=== PATIENT | female | born 1945 | race Caucasian/White ===

== ENCOUNTER → 2017-01-21 | Outpatient (CLI) | payer MEDICARE, OTHER ==
[2017-01-21 14:34] LABS: CH 28.9; CHCM 32.6; HCT 35.1 % (34.0-46.0); HDW 3.01; HGB 11.7 gm/dL (11.4-16.0); MCH 29.7 pg (25.0-35.0); MCHC 33.3 g/dL (31.0-37.0); Mean Platelet Volume 6.7; RBC 3.94 m/uL (3.80-5.40); RDW 14.7 % (11.5-15.5); WBC 4.5 k/uL (3.8-10.6)
[2017-01-21 14:38] LABS: Anion Gap 10 mmol/L; Blood Urea Nitrogen 18 mg/dL (7-17); Carbon Dioxide 27 mmol/L (22-30); Chloride 100 mmol/L (98-107); Non-African American GFR(MDRD) >60 (>60 ml/min/1.73 sqM); Sodium 137 mmol/L (137-145)
== END | disposition home or self-care (01) ==
LOC: LABPAT 14:05
PROVIDERS: ATTEND Internal Medicine Interventional Cardiology
DX: Z01.812 Encounter for preprocedural laboratory examination (principal); R94.30 Abnormal result of cardiovascular function study, unspecified
CPT/HCPCS: 80051; 82565; 84520; 85027

== ENCOUNTER → 2017-02-05 | Day surgery (SDC) | payer MEDICARE, OTHER ==
[2017-02-04 08:30] VITALS: BMI 25.4
[~2017-02-05] MED LIST: ALPRAZolam 0.25 MG TAB PO PRN; ALPRAZolam 0.5 MG TAB PO PRN; ASPIRIN 325 MG TAB PO STA; ATORVASTATIN 80 MG TAB PO STA; IOHEXOL 350 MG/ML 125ML BOTTLE INJ ONE; LIDOCAINE 2% INJ 20 MG/ML (20 ML MDV) ONE; LIDOCAINE 2% INJ 20 MG/ML SQ ONE; MIDAZOLAM 2 MG/2 ML VIAL IV ONE; MIDAZOLAM 2 MG/2 ML VIAL ONE; NITROGLYCERIN SL TABS 0.4 MG TAB SUBLINGUAL ONE; NITROGLYCERIN SL TABS 0.4 MG TAB SUBLINGUAL PRN; SODIUM CHLORIDE 0.9% 1,000 ML IV ONE; SODIUM CHLORIDE 0.9% 1,000 ML IV SCH; SODIUM CHLORIDE 0.9% 1,000 ML in EMPTY BAG 1 BAG IV ONE; diphenhydrAMINE 50 MG/ML 1 ML VIAL IVP ONE; diphenhydrAMINE 50 MG/ML 1 ML VIAL ONE
[2017-02-05 06:56] VITALS: RESP 16; TEMP 98.1
--- NOTE | 2017-02-05 08:56 | CC ---
DATE OF SERVICE: 02/05/2017 PROCEDURE: Left heart catheterization, coronary angiography and left ventriculography. Performed by Dr. Sara Merrill. Moderate conscious sedation was provided for this patient for a total duration of 40 minutes. Versed, and Benadryl were given and oxygenation was monitored closely. PROCEDURE NOTE: Under local anesthesia and strict aseptic precautions, a 6 Mozambican introducer was placed in the right femoral artery. Using standard Aida catheters, I performed coronary angiography. Patient tolerated the procedure well. The sheath was taken out, manual compression was used because of small common femoral arteries. Patient was sent to the room in stable condition. She tolerated the procedure well without complications. CARDIAC CATHETERIZATION FINDINGS: The left ventricle end-diastolic pressure was about 22 mmHg and there was no gradient across the aortic valve. CORONARY ANGIOGRAPHY FINDINGS: RIGHT CORONARY ARTERY: Small nondominant vessel, supplies a limited amount of myocardium. There is no significant disease in the right coronary artery. LEFT MAIN CORONARY ARTERY: Short, patent, disease-free vessel that bifurcates into LAD and circumflex. LEFT ANTERIOR DESCENDING CORONARY ARTERY: Good caliber vessel extends along the anterior wall, gives septal and diagonal branches. The first diagonal is large caliber distribution, has no significant disease. Septals are free of significant disease. LAD, runs all the way to the apex supplying a sizable amount of myocardium. ( ) of the apex supply the inferoapical portion of the left ventricle. The entire LAD system is free of significant disease. LEFT POSTERIOR CIRCUMFLEX CORONARY ARTERY: Dominant vessel gives off a large obtuse marginal free of significant disease. Second obtuse marginal has minor diffuse disease distal posterolateral branch is free of significant disease. LEFT VENTRICULOGRAM: This was performed in 30 degree DENNIS projection. There was some ventricular tachycardia. Ejection fraction is about 45% with mild global decrease in contractility. FINAL IMPRESSION: This patient has a left dominant system, elevated filling pressures, mildly impaired left ventricular systolic function, but no significant obstructive coronary artery disease. RECOMMENDATION: Findings were discussed with the patient and family. Patient should be able to go ahead with her proposed elective hysterectomy. There is no contraindication. I will; however, add a small dose of diuretic. She is already on an ARB and a beta pita. I allowed 20 mg of Lasix to be started tomorrow. Patient can go ahead with the proposed hysterectomy. There is no contraindication but would recommend cautious fluid administration and optimal blood pressure control perioperatively.
--- NOTE | 2017-02-05 09:01 | LTR ---
February 05, 2017 RE: CorbinHernandez Dear Dr. Vazquez; Thank you for the opportunity to participate in the care of Ms. Alaniz. I am pleased to report to you that she does not have any significant progression of disease. Filling pressure is elevated. I am adding 20 mg of Lasix daily. She will be discharged later on today and can go ahead with the surgery with the understanding that the risk is higher than usual given her comorbid conditions, but no absolute contraindication. Cautious fluid administration and optimal blood pressure control is advised. Thank you for your referral and please call for questions. With kindest regards. Sincerely yours, SARAH BAIRES MD
[2017-02-05 16:24] VITALS: PULSE 90
[2017-02-05 17:06] VITALS: BP 125/59
== END ==
LOC: CATHCVL 06:21
PROVIDERS: ATTEND Internal Medicine Interventional Cardiology
DX: I25.110 Atherosclerotic heart disease of native coronary artery with unstable angina pectoris (principal); E78.00 Pure hypercholesterolemia, unspecified; E78.5 Hyperlipidemia, unspecified; E03.9 Hypothyroidism, unspecified; I42.0 Dilated cardiomyopathy; R94.39 Abnormal result of other cardiovascular function study; I10 Essential (primary) hypertension; Z85.72 Personal history of non-Hodgkin lymphomas; Z92.21 Personal history of antineoplastic chemotherapy; Z85.118 Personal history of other malignant neoplasm of bronchus and lung; Z79.51 Long term (current) use of inhaled steroids; Z79.899 Other long term (current) drug therapy; Z88.1 Allergy status to other antibiotic agents; Z88.2 Allergy status to sulfonamides; Z87.891 Personal history of nicotine dependence
CPT/HCPCS: 93458; 99152; 99153; C1894; C1769 ×2; J2001; J2250; J1200; Q9967

== ENCOUNTER → 2017-03-02 | Outpatient (CLI) | payer MEDICARE, OTHER ==
[2017-03-02 12:03] LABS: Basophils % (A) 1 %; CH 28.1; CHCM 32.8; Eosinophils # (A) 0.1 k/uL (0-0.7); Eosinophils % (A) 2 %; HCT 31.1 % (34.0-46.0); HGB 10.2 gm/dL (11.4-16.0); Luc # (Auto) 0.24; Luc % (Auto) 4; Lymphocytes # (A) 0.8 k/uL (1.0-4.8); Lymphocytes % (A) 14 %; MCH 28.2 pg (25.0-35.0); MCHC 32.8 g/dL (31.0-37.0); Mean Platelet Volume 6.8; Monocytes # (A) 0.4 k/uL (0-1.0); Monocytes % (A) 7 %; Neutrophils % (A) 72 %; RBC 3.62 m/uL (3.80-5.40); RDW 14.4 % (11.5-15.5); WBC 5.6 k/uL (3.8-10.6); WBC (Perox) 5.83
[2017-03-02 12:21] LABS: Anion Gap 12 mmol/L; Blood Urea Nitrogen 25 mg/dL (7-17); Calcium 9.3 mg/dL (8.4-10.2); Carbon Dioxide 28 mmol/L (22-30); Chloride 98 mmol/L (98-107); Glucose 103 mg/dL (74-99); Non-African American GFR(MDRD) 56 (>60 ml/min/1.73 sqM); Potassium 4.6 mmol/L (3.5-5.1); Sodium 138 mmol/L (137-145)
== END ==
LOC: LABPAT 11:22
PROVIDERS: ATTEND Obstetrics & Gynecology
DX: Z01.810 Encounter for preprocedural cardiovascular examination (principal); Z01.812 Encounter for preprocedural laboratory examination
CPT/HCPCS: 36415; 80048; 80061; 85025; 86850; 86900; 86901

== ENCOUNTER → 2017-03-02 | Outpatient (CLI) | payer MEDICARE, OTHER ==
[2017-03-02 12:21] LABS: Cholesterol 181 mg/dL (<200); HDL Cholesterol 37 mg/dL (40-60); Triglycerides 146 mg/dL (<150)
== END ==
LOC: LABWHC1 11:22
PROVIDERS: ATTEND Internal Medicine Interventional Cardiology
DX: E78.2 Mixed hyperlipidemia (principal)
CPT/HCPCS: 36415; 80061

== ENCOUNTER 2017-03-09 06:01 | Day surgery (SDC) | payer MEDICARE, OTHER ==
[2017-03-04 11:42] VITALS: BMI 25.4
[~2017-03-09 06:01] MED LIST changes: -ALPRAZolam 0.25 MG TAB PO PRN; -ALPRAZolam 0.5 MG TAB PO PRN; -ASPIRIN 325 MG TAB PO STA; -ATORVASTATIN 80 MG TAB PO STA; +DEXAMETHASONE SOD PHOSPHATE 10 MG/ML 1 ML VIAL IV ONE; +GENTAMICIN 120 MG in SODIUM CHLORIDE 0.9% 100 ML IVPB ONE; -IOHEXOL 350 MG/ML 125ML BOTTLE INJ ONE; -LIDOCAINE 2% INJ 20 MG/ML (20 ML MDV) ONE; -LIDOCAINE 2% INJ 20 MG/ML SQ ONE; -MIDAZOLAM 2 MG/2 ML VIAL IV ONE; -MIDAZOLAM 2 MG/2 ML VIAL ONE; -NITROGLYCERIN SL TABS 0.4 MG TAB SUBLINGUAL ONE; -NITROGLYCERIN SL TABS 0.4 MG TAB SUBLINGUAL PRN; +ONDANSETRON 4 MG/2 ML VIAL IVP ONE; -SODIUM CHLORIDE 0.9% 1,000 ML IV ONE; -SODIUM CHLORIDE 0.9% 1,000 ML IV SCH; -SODIUM CHLORIDE 0.9% 1,000 ML in EMPTY BAG 1 BAG IV ONE; +ceFAZolin 2 GM in SODIUM CHLORIDE 0.9% 100 ML IVPB ONE; -diphenhydrAMINE 50 MG/ML 1 ML VIAL IVP ONE; -diphenhydrAMINE 50 MG/ML 1 ML VIAL ONE
--- NOTE | 2017-03-09 06:21 | P.HPOB ---
History of Present Illness H&P Date: 03/09/17 Chief Complaint: prolapse 71 year old presents for TLH BSO with da vinici, anterior repair and then sub urethral sling placement by Dr Lee. Review of Systems All systems: negative Constitutional: Denies chills, Denies fever Eyes: denies blurred vision, denies pain Ears, nose, mouth and throat: Denies headache, Denies sore throat Cardiovascular: Denies chest pain, Denies shortness of breath Respiratory: Denies cough Gastrointestinal: Denies abdominal pain, Denies diarrhea, Denies nausea, Denies vomiting Genitourinary: Denies dysuria, Denies hematuria Musculoskeletal: Denies myalgias Integumentary: Denies pruritus, Denies rash Neurological: Denies numbness, Denies weakness Psychiatric: Denies anxiety, Denies depression Endocrine: Denies fatigue, Denies weight change Past Medical History Past Medical History: Cancer, Deep Vein Thrombosis (DVT), Osteoarthritis (OA), Thyroid Disorder Additional Past Medical History / Comment(s): lung cancer, LYMPHOMA-NON HODGKINS , " LOWER CHAMBER OF HEART WAS DAMAGED DURING CHEMO" DVT- LEFT LEG History of Any Multi-Drug Resistant Organisms: None Reported Past Surgical History: Appendectomy, Cholecystectomy, Tubal Ligation Additional Past Surgical History / Comment(s): lung Ca, lymphoma, stem cell transplantsurgical hx: right lung lobectomy Past Anesthesia/Blood Transfusion Reactions: No Reported Reaction Smoking Status: Former smoker Past Alcohol Use History: None Reported Past Drug Use History: None Reported - Past Family History Father Family Medical History: Cancer Additional Family Medical History / Comment(s): PROSTATE CANCER Mother Family Medical History: Cancer Sister(s) Family Medical History: Cancer Additional Family Medical History / Comment(s): SKIN CANCER Brother(s) Family Medical History: Cancer Additional Family Medical History / Comment(s): lung Medications and Allergies Home Medications Medication Instructions Recorded Confirmed Type Carvedilol [Coreg] 6.25 mg PO QAM 01/06/15 03/09/17 History Levothyroxine Sodium [Synthroid] 100 mcg PO DAILY 01/06/15 03/09/17 History Montelukast [Singulair] 10 mg PO HS 01/06/15 03/09/17 History Arformoterol Tartrate [Brovana] 15 mcg INHALATION RT-BID 08/13/16 03/09/17 History Baclofen [Lioresal] 20 mg PO HS 08/13/16 03/09/17 History Budesonide [Pulmicort] 1 mg INHALATION RT-BID 08/13/16 03/09/17 History Calcium Carbonate [Calcium] 600 mg PO BID 08/13/16 03/09/17 History Carvedilol [Coreg] 3.125 mg PO HS 08/13/16 03/09/17 History Esomeprazole Magnesium [NexIUM] 40 mg PO DAILY 08/13/16 03/09/17 History Losartan [Cozaar] 25 mg PO HS 08/13/16 03/09/17 History Aspirin [Adult Low Dose Aspirin EC] 81 mg PO DAILY 02/04/17 03/09/17 History Diclofenac Sodium [Voltaren] 50 mg PO BID 03/04/17 03/09/17 History Furosemide [Lasix] 20 mg PO DAILY 03/04/17 03/09/17 History Allergies Allergy/AdvReac Type Severity Reaction Status Date / Time levofloxacin [From Levaquin] Allergy Rash/Hives Verified 03/09/17 06:10 Sulfa (Sulfonamide Allergy Rash/Hives Verified 03/09/17 06:10 Antibiotics) Exam Osteopathic Statement: *. No significant issues noted on an osteopathic structural exam other than those noted in the History and Physical/Consult. Heart: Regular rate and rhythm Lungs: Clear to auscultation bilaterally Abdomen: Soft, nontender Extremities: Negative Homans sign Assessment and Plan (1) Cystocele Status: Acute (2) Overflow stress urinary incontinence in female Status: Acute Plan: 1. Total laparoscopic hysterectomy and bilateral salpingo-oophorectomy with da Frank, anterior repair and then a suburethral sling placed by Dr. Lee
[2017-03-09] MEDS: LACTATED RINGERS 1,000 ML IV SCH ×5 (06:37→22:07)
[2017-03-09] MEDS ORDERED: SUCCINYLCHOLINE CHLORIDE 100 MG/5 ML SYR IV ONE (07:15)
[2017-03-09] MEDS ORDERED: VECURONIUM 10 MG VIAL IV ONE (07:15)
[2017-03-09] MEDS ORDERED: PROPOFOL 10 MG/ML 20 ML VIAL IV ONE (07:15)
[2017-03-09] MEDS ORDERED: NEOSTIGMINE 1 MG/ML 10 ML VIAL ONE (07:15)
[2017-03-09] MEDS ORDERED: fentaNYL (PF) 50 MCG/ML 2 ML AMP ONE (07:15)
[2017-03-09] MEDS ORDERED: MIDAZOLAM 2 MG/2 ML VIAL ONE (07:15)
[2017-03-09] MEDS ORDERED: GLYCOPYRROLATE 0.2 MG/ML 2 ML VIAL ONE (07:15)
[2017-03-09] MEDS ORDERED: PHENYLEPHRINE-0.9% NACL SYG 1 MG/10 ML SYRINGE ONE (07:15)
[2017-03-09] MEDS ORDERED: LIDOCAINE 1% INJ 10MG/ML (20 ML MDV) ONE (07:15)
[2017-03-09] MEDS ORDERED: BUPIVACAINE (PF) 0.25% 30 ML VIAL SQ ONE (07:48)
[2017-03-09] MEDS ORDERED: LACTATED RINGERS 1,000 ML IV ONE (09:16)
[2017-03-09] MEDS: HYDROmorphone 1 MG/ML 1 ML SYRINGE IVP PRN ×2 (09:29→09:38)
[2017-03-09] MEDS ORDERED: ONDANSETRON 4 MG/2 ML VIAL IVP ONE (09:33)
--- NOTE | 2017-03-09 09:39 | P.OP ---
Date of Procedure: 03/09/17 Preoperative Diagnosis: Mixed Urinary Incontinence Postoperative Diagnosis: Same Procedure(s) Performed: Lynx Suprapubic Mid-Urethral Sling Implants: Anesthesia: GETA Surgeon: Edward Lee Hotel Attendant #1: Caryn Deluca Estimated Blood Loss (ml): 250 Pathology: none sent Condition: stable Disposition: PACU Indications for Procedure: She is a 71-year-old woman with mild mixed urinary incontinence, which requires the use of one liner daily. She previously required 3-4 maxi pads daily. She has a cystocele, and has recently experienced difficulty voiding. 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 Bladder emptying is complete, and urinalysis is negative. She desires treatment, which will consist of a RALH, anterior repair, and Lynx sling. UDS is consistent with type 2-3 stress incontinence, with a Valsalva leak point pressure of approximately 70 cm water. The sling was reviewed in detail, including potential risks, and she prefers the Lynx sling over a TOT sling due to the decreased likelihood of postoperative incontinence. Operative Findings: Bladder adherent to underside of pubis. Left needle perforated bladder on first pass. Description of Procedure: I entered the operating room after Dr. Deluca completed the hysterectomy and anterior repair. The patient was positioned in the dorsal lithotomy position, with her legs supported in Derian stirrups. The urethra was exposed through an anterior vaginal midline incision. Metzenbaum scissors were used to dissect laterally within the submucosal plane, to the inferior pubic ramus. The scalpel was used to make bilateral incisions just above the pubis, 1 cm lateral to the midline. Subcutaneous tissues were spread with a hemostat. A needle was passed through each of the incisions. Contact was made with the underside of the pubis, and the needle tip was advanced down to the vaginal incision. With a finger in the vaginal incision, each needle tip was guided digitally and advanced into the vaginal incision. Cystoscopy was then performed, and it was evident that the left sided needle had traversed the bladder. Both needles were removed, and the endopelvic fascia was perforated bilaterally using digital dissection. The bladder was swept away from the underside of the pubis , and the needles were replaced. With a finger in the space of Retzius, the needles were guided digitally and advanced into the vaginal incision. Cystoscopy was repeated, and no abnormalities were noted. Specifically, the ureteral orifices appeared normal, and no tumors or foreign bodies were seen. Neither needle traversed the bladder. A small puncture wound was noted on the anterior vaginal wall, to the left of the midline, and slight oozing was also noted from the anterior aspect of the vesical neck. The Lynx graft, which had been previously soaked in antibiotic solution, was secured to the needle tips in the standard fashion. The needles were then withdrawn, and the position of the graft was adjusted such that it overlie the mid urethra, as desired. With a hemostat placed between the graft and the urethra to prevent tension of the graft over the urethra, the plastic sheath was removed from the ends of the graft. The ends of the graft were cut beneath the skin incisions, and these incisions were closed using 4-0 Vicryl suture in a subcuticular fashion. Hemostasis within the vaginal incision was adequate, and the vaginal incision was closed by Dr. Deluca using 2-0 Vicryl suture in a running fashion. The Stein catheter was connected to gravity drainage. Vaginal packing was placed. All sponge and needle counts were correct. The patient tolerated the procedure well was taken to the recovery room in stable condition.
[2017-03-09] MEDS ORDERED: METOCLOPRAMIDE 5 MG/ML 2 ML VIAL IVP PRN (11:38)
[2017-03-09] MEDS ORDERED: Acetaminophen-Codeine 300-30mg TAB PO PRN ×2 (11:38)
[2017-03-09] MEDS ORDERED: IBUPROFEN 600 MG TAB PO PRN (11:38)
[2017-03-09] MEDS ORDERED: SIMETHICONE 80 MG CHEWABLE PO PRN (11:38)
[2017-03-09] MEDS ORDERED: ONDANSETRON 4 MG/2 ML VIAL IVP PRN (11:38)
[2017-03-09] MEDS ORDERED: diphenhydrAMINE 50 MG/ML 1 ML VIAL IVP PRN (11:38)
[2017-03-09] MEDS: KETOROLAC 30 MG/ML 1 ML VIAL IVP PRN ×2 (12:31→18:24)
--- NOTE | 2017-03-09 12:46 | P.OP ---
Date of Procedure: 03/09/17 Preoperative Diagnosis: 1. Cystocele 2. Stress urinary incontinence Postoperative Diagnosis: 1. Cystocele 2. Stress urinary incontinence 3. Pelvic adhesions Procedure(s) Performed: Total laparoscopic hysterectomy, bilateral salpingo-oophorectomy using da Frank , anterior repair and suburethral sling placed by Dr. Lee Implants: Anesthesia: MARTHA Surgeon: Caryn Deluca Vacuum Caster #1: Crys Núñez Estimated Blood Loss (ml): 80 IV fluids (ml): 1,100 Urine output (ml): 100 Pathology: other (Uterus, cervix, bilateral tubes and ovaries) Condition: stable Disposition: PACU Indications for Procedure: Operative Findings: Some bowel adhesions to the posterior wall of the uterus, some bladder adhesions to the fundus of the uterus. Description of Procedure: Patient taken the operating room where general anesthesia was obtained without difficulty. She is prepped and draped in normal sterile fashion dorsal lithotomy position, legs placed in the Derian stirrups. Weighted speculum placed in the vagina and the anterior lip the cervix was grasped with single- tooth tenaculum. The uterus sounded to 6 cm and the cervix diameter was 3.0 cm. The appropriate manipulator tip and ring were placed on the Elisa manipulator. The Elisa manipulator was then placed in the uterus. Stein catheter was also placed. Attention was then turned to the abdomen and gloves were changed. A 5 mm supraumbilical incision was made the scalpel and a 5 mm optical trocar was placed under direct visualization. 10 cm to the right of this and 2 cm down a 5 mm incision was made and 8 mm da Frank port was placed under direct visualization. Same measurements on the opposite side of the patient's abdomen, the 5 mm incision was made and 8 mm da Frank port was placed under direct visualization. In the left upper quadrant a 10 mm incision was made and a 10 mm optical trocar was placed under direct visualization. The 5 mm optical trocar was then replaced with the 8 mm da Frank camera port. The robot was docked on patient's right side. The camera was introduced and then the monopolar curved scissor and [place] bipolar placed under direct visualization. I broke scrub and went to the physician console. The adhesion to the bowel was taken down using the [place] bipolar and the monopolar curved scissors. The filmy adhesion to the bladder was also taken down using the monopolar curved scissors. The left infundibulopelvic ligament was cauterized with the [place] bipolar and cut with monopolar curved scissors. The left round ligament was cauterized with the [place] bipolar and cut with monopolar curved scissors. The posterior leaf of the broad ligament was taken down using the monopolar curved scissors. Anterior leaf of the broad ligament was then taken down using the monopolar curved scissors. The uterine artery was cauterized with the [place] bipolar and cut with monopolar curved scissors. The bladder flap was then started using the monopolar curved scissors. Attention was then turned to the right side of the patient's anatomy and the right infundibular pelvic ligament was cauterized with the [place] bipolar and cut with monopolar curved scissors. The right round ligament was cauterized with the [place] bipolar and cut with monopolar curved scissors. Posterior leaf of the broad ligament was taken down using the monopolar curved scissors and the anterior leaf was taken down using the monopolar curved scissors. The uterine artery was cauterized the [place] bipolar cut with monopolar curved scissors. The bladder flap was then finished on this side. Anterior colpotomy was made using the monopolar curved scissors. The rest of the uterus was from the vaginal cuff by following the ring around with the monopolar curved scissors through the uterosacral ligaments back to the anterior portion. Once the uterus and cervix were amputated they were pulled through the vaginal cuff. Hemostasis was assured. The instruments were changed for the Cardier forcep and the hue suture cut. The vaginal cuff was then closed using O stratafix barbed suture in a running fashion. Hemostasis was again assured and the pelvis was irrigated. All instruments were removed from the abdomen and the robot was undocked. The abdominal incisions were closed with 4-0 Vicryl in a subcuticular fashion. I scrubbed back in to perform the vaginal portion of the procedure. The anterior vaginal mucosa was grasped with Allis clamps and vasopressin was injected. An incision was made the scalpel. The incision was extended superiorly with the Metzenbaums. The vaginal mucosa was peeled off the underlying fascia and a blunt manner. A Madhavi plication stitch was placed. Dr. Lee then scrubbed in and performed his portion of the procedure, please see his dictation for details on this. Patient tolerated the procedure well, sponge and instrument counts correct 2 and she was taken to recovery room in stable condition condition
[2017-03-09] MEDS: ceFAZolin 1,000 MG in DEXTROSE/WATER 1 50ML.BAG IVPB SCH (16:32)
[2017-03-09] MEDS ORDERED: GENTAMICIN 80 MG in SODIUM CHLORIDE 0.9% 100 ML IVPB ONE (19:00)
[2017-03-09] MEDS ORDERED: FORMOTEROL FUMARATE 20 MCG/2 ML NEBU INHALATION SCH (20:00)
[2017-03-09] MEDS: CALCIUM CARBONATE 500 MG CHEWABLE PO SCH (20:37)
[2017-03-09] MEDS: ETODOLAC 200 MG CAPSULE PO SCH (20:38)
[2017-03-09] MEDS: SENNOSIDES-DOCUSATE SODIUM 1 EACH TAB PO SCH (20:39)
[2017-03-09] MEDS ORDERED: MONTELUKAST 10 MG TAB PO SCH (21:00)
[2017-03-09] MEDS ORDERED: LOSARTAN 25 MG TAB PO SCH (21:00)
[2017-03-09] MEDS ORDERED: CARVEDILOL 3.125 MG TAB PO SCH (21:00)
[2017-03-09] MEDS ORDERED: BACLOFEN 10 MG TAB PO SCH (21:00)
[2017-03-09] MEDS: BUDESONIDE 1 MG/2 ML NEBU INHALATION SCH (21:01)
[2017-03-09] MEDS: FORMOTEROL FUMARATE 20 MCG/2 ML NEBU INHALATION SCH (21:01)
[2017-03-10] MEDS: KETOROLAC 30 MG/ML 1 ML VIAL IVP PRN ×2 (00:24→06:09)
[2017-03-10] MEDS: ceFAZolin 1,000 MG in DEXTROSE/WATER 1 50ML.BAG IVPB SCH ×2 (00:25→07:39)
[2017-03-10 03:36] VITALS: RESP 18
[2017-03-10] MEDS: LACTATED RINGERS 1,000 ML IV SCH (06:11)
[2017-03-10] MEDS ORDERED: LEVOTHYROXINE 100 MCG TAB PO SCH (06:30)
[2017-03-10 07:07] LABS: Basophils % (A) 0 %; CH 27.5; CHCM 31.8; Eosinophils % (A) 1 %; HDW 3.14; Hypochromasia Slight; Luc # (Auto) 0.16; Luc % (Auto) 4; Lymphocytes # (A) 0.6 k/uL (1.0-4.8); Lymphocytes % (A) 15 %; MCH 27.7 pg (25.0-35.0); MCHC 31.8 g/dL (31.0-37.0); MCV 86.9 fL (80.0-100.0); Mean Platelet Volume 6.7; Monocytes # (A) 0.3 k/uL (0-1.0); Monocytes % (A) 8 %; Neutrophils # (A) 2.7 k/uL (1.3-7.7); Neutrophils % (A) 72 %; RBC 2.76 m/uL (3.80-5.40); RDW 14.6 % (11.5-15.5); WBC 3.8 k/uL (3.8-10.6); WBC (Perox) 4.15
[2017-03-10 07:11] LABS: HGB 7.6 gm/dL (11.4-16.0)
[2017-03-10] MEDS: FORMOTEROL FUMARATE 20 MCG/2 ML NEBU INHALATION SCH (07:17)
[2017-03-10] MEDS: BUDESONIDE 1 MG/2 ML NEBU INHALATION SCH (07:18)
[2017-03-10 08:42] VITALS: BP 97/54; PULSE 90; TEMP 97.2
[2017-03-10] MEDS: CALCIUM CARBONATE 500 MG CHEWABLE PO SCH (08:47)
[2017-03-10] MEDS: ETODOLAC 200 MG CAPSULE PO SCH (08:48)
[2017-03-10] MEDS: SENNOSIDES-DOCUSATE SODIUM 1 EACH TAB PO SCH (08:51)
[2017-03-10] MEDS ORDERED: CARVEDILOL 6.25 MG TAB PO SCH (09:00)
[2017-03-10] MEDS ORDERED: FUROSEMIDE 20 MG TAB PO SCH (09:00)
[2017-03-10] MEDS ORDERED: PANTOPRAZOLE 40 MG TABLET PO SCH (09:00)
--- NOTE | 2017-03-10 09:20 | P.DS ---
Providers Expected date of discharge: 03/10/17 Attending physician: Caryn Deluca Primary care physician: Glenroy Vazquez - Discharge Diagnosis(es) (1) Cystocele Current Visit: Yes Status: Resolved (2) Overflow stress urinary incontinence in female Current Visit: Yes Status: Resolved (3) History of robot-assisted laparoscopic hysterectomy Current Visit: Yes Status: Acute Hospital Course: Patient presented for TLSO with da Frank, anterior repair and suburethral sling. She did undergo these procedures and the only complication was a small bladder perforation. She'll maintain the catheter upon discharge and follow-up with urology in 1 week. Her pain is well-controlled. She is tolerating regular diet, ambulating without difficulty. She'll be discharged home postoperative day #1 in stable condition to follow-up with me in 3 weeks. Plan - Discharge Summary New Discharge Prescriptions: New Acetaminophen-Codeine 300-30mg [Tylenol w/codeine #3] 1 each PO Q4HR PRN #30 tab PRN Reason: Moderate Pain Ibuprofen [Motrin] 600 mg PO Q6HR PRN #30 tab PRN Reason: Mild Discomfort No Action Montelukast [Singulair] 10 mg PO HS Levothyroxine Sodium [Synthroid] 100 mcg PO DAILY Carvedilol [Coreg] 6.25 mg PO QAM Losartan [Cozaar] 25 mg PO HS Esomeprazole Magnesium [NexIUM] 40 mg PO DAILY Carvedilol [Coreg] 3.125 mg PO HS Budesonide [Pulmicort] 1 mg INHALATION RT-BID Baclofen [Lioresal] 20 mg PO HS Arformoterol Tartrate [Brovana] 15 mcg INHALATION RT-BID Calcium Carbonate [Calcium] 600 mg PO BID Aspirin [Adult Low Dose Aspirin EC] 81 mg PO DAILY Furosemide [Lasix] 20 mg PO DAILY Diclofenac Sodium [Voltaren] 50 mg PO BID Discharge Medication List Carvedilol [Coreg] 6.25 mg PO QAM 01/06/15 [History] Levothyroxine Sodium [Synthroid] 100 mcg PO DAILY 01/06/15 [History] Montelukast [Singulair] 10 mg PO HS 01/06/15 [History] Arformoterol Tartrate [Brovana] 15 mcg INHALATION RT-BID 08/13/16 [History] Baclofen [Lioresal] 20 mg PO HS 08/13/16 [History] Budesonide [Pulmicort] 1 mg INHALATION RT-BID 08/13/16 [History] Calcium Carbonate [Calcium] 600 mg PO BID 08/13/16 [History] Carvedilol [Coreg] 3.125 mg PO HS 08/13/16 [History] Esomeprazole Magnesium [NexIUM] 40 mg PO DAILY 08/13/16 [History] Losartan [Cozaar] 25 mg PO HS 08/13/16 [History] Aspirin [Adult Low Dose Aspirin EC] 81 mg PO DAILY 02/04/17 [History] Diclofenac Sodium [Voltaren] 50 mg PO BID 03/04/17 [History] Furosemide [Lasix] 20 mg PO DAILY 03/04/17 [History] Acetaminophen-Codeine 300-30mg [Tylenol w/codeine #3] 1 each PO Q4HR PRN #30 tab 03/10/17 [Rx] Ibuprofen [Motrin] 600 mg PO Q6HR PRN #30 tab 03/10/17 [Rx] Follow up Appointment(s)/Referral(s): Caryn Deluca DO [Doctor of Osteopathic Medicine] - 3 Weeks Discharge Disposition: HOME SELF-CARE
--- NOTE | 2017-03-10 09:41 | P.PN ---
Progress Note - Text POD #1, s/p Lynx sling. Vaginal packing out. The patient reports minimal abdominal discomfort. She is ambulating without difficulty. She denies lightheadedness or dizziness. She is afebrile with stable vital signs. The abdomen is soft and nondistended. The incisions are clean and dry. A Stein catheter is draining clear yellow urine. The hemoglobin level today was 7.6, down from 10.2 pre-operatively. She is doing well and will be discharged home with the Stein catheter, which will remain in place for 1 week. Arrangements will be made for a voiding trial in one week.
== END 2017-03-10 11:51 | disposition home or self-care (01) ==
LOC: OR 06:01 → 6PED 09:27 → OR 03-10 11:51
PROVIDERS: ATTEND Obstetrics & Gynecology
DX: N81.10 Cystocele, unspecified (principal); N39.46 Mixed incontinence; I10 Essential (primary) hypertension; E07.9 Disorder of thyroid, unspecified; K21.9 Gastro-esophageal reflux disease without esophagitis; N73.6 Female pelvic peritoneal adhesions (postinfective); Z87.891 Personal history of nicotine dependence; Z90.2 Acquired absence of lung [part of]; Z86.718 Personal history of other venous thrombosis and embolism; Z79.82 Long term (current) use of aspirin; Z79.51 Long term (current) use of inhaled steroids; Z79.899 Other long term (current) drug therapy; Z88.1 Allergy status to other antibiotic agents; Z88.2 Allergy status to sulfonamides
CPT/HCPCS: 94640 ×2; 85025; 88307; 58571; 57288; C1771; J2250; J1100; J2710; J0690 ×3; J2405; J2001; J3010; J1885 ×2; J1580; J1170; J2370; J0330; J2704; 86850; 86900; 86901

== ENCOUNTER → 2017-03-11 | Outpatient (CLI) | payer MEDICARE, OTHER ==
[2017-03-11 14:28] LABS: CH 27.1; CHCM 31.5; HCT 25.4 % (34.0-46.0); HDW 3.23; HGB 8.3 gm/dL (11.4-16.0); Hypochromasia Moderate; MCH 28.4 pg (25.0-35.0); MCHC 32.9 g/dL (31.0-37.0); MCV 86.4 fL (80.0-100.0); Mean Platelet Volume 7.6; RBC 2.93 m/uL (3.80-5.40); RDW 14.6 % (11.5-15.5); WBC 4.5 k/uL (3.8-10.6)
== END | disposition home or self-care (01) ==
LOC: LABWHC1 14:09
PROVIDERS: ATTEND Urology
DX: D64.9 Anemia, unspecified (principal)
CPT/HCPCS: 36415; 85027

== ENCOUNTER 2017-03-22 09:41 | Emergency (ER) | payer MEDICARE, OTHER ==
[2017-03-22] MEDS ORDERED: ACETAMINOPHEN TAB 500 MG TAB PO STA (10:01)
[2017-03-22] MEDS ORDERED: IBUPROFEN 600 MG TAB PO STA (10:01)
--- NOTE | 2017-03-22 10:04 | ED ---
General Adult HPI - General Chief complaint: Weakness Stated complaint: weakness/tired Time Seen by Provider: 03/22/17 09:50 Source: patient, RN notes reviewed Mode of arrival: ambulatory Limitations: no limitations - History of Present Illness Initial comments: This is a 71-year-old female who presents to the emergency department with a past medical history significant for lung cancer some 20 years ago and lymphoma in the past. Patient states recently she had a hysterectomy and a bladder suspension 2 weeks ago. Patient comes in today because since Thursday she's been extremely fatigued and weak. Patient states she had some dry heaves on Thursday but no actual vomiting patient denies any diarrhea. Patient states she has a little bit of lower abdominal tenderness with the surgery was done but nothing that she would consider out of the ordinary. Patient denies any recent fever chills or cough. Patient denies any chest pain or palpitations. Patient denies any dysuria hematuria urinary frequency. Patient denies any skin lesions rashes or redness - Related Data Home Medications Medication Instructions Recorded Confirmed Carvedilol [Coreg] 6.25 mg PO [facility] 01/06/15 03/09/17 Levothyroxine Sodium [Synthroid] 100 mcg PO DAILY 01/06/15 03/09/17 Montelukast [Singulair] 10 mg PO HS 01/06/15 03/09/17 Arformoterol Tartrate [Brovana] 15 mcg INHALATION RT-BID 08/13/16 03/09/17 Baclofen [Lioresal] 20 mg PO HS 08/13/16 03/09/17 Budesonide [Pulmicort] 1 mg INHALATION RT-BID 08/13/16 03/09/17 Calcium Carbonate [Calcium] 600 mg PO BID 08/13/16 03/09/17 Carvedilol [Coreg] 3.125 mg PO HS 08/13/16 03/09/17 Esomeprazole Magnesium [NexIUM] 40 mg PO DAILY 08/13/16 03/09/17 Losartan [Cozaar] 25 mg PO HS 08/13/16 03/09/17 Aspirin [Adult Low Dose Aspirin EC] 81 mg PO DAILY 02/04/17 03/09/17 Diclofenac Sodium [Voltaren] 50 mg PO BID 03/04/17 03/09/17 Furosemide [Lasix] 20 mg PO DAILY 03/04/17 03/09/17 Previous Rx's Medication Instructions Recorded Acetaminophen-Codeine 300-30mg 1 each PO Q4HR PRN #30 tab 03/10/17 [Tylenol w/codeine #3] Cephalexin [Keflex] 500 mg PO Q8HR #15 cap 03/10/17 Ibuprofen [Motrin] 600 mg PO Q6HR PRN #30 tab 03/10/17 Amoxicillin/Potassium Clav 1 each PO Q12HR #28 tab 03/22/17 [Augmentin 875-125 Tablet] Allergies Allergy/AdvReac Type Severity Reaction Status Date / Time levofloxacin [From Levaquin] Allergy Rash/Hives Verified 03/22/17 09:45 Sulfa (Sulfonamide Allergy Rash/Hives Verified 03/22/17 09:45 Antibiotics) Review of Systems ROS Statement: Those systems with pertinent positive or pertinent negative responses have been documented in the HPI. ROS Other: All systems not noted in ROS Statement are negative. Past Medical History Past Medical History: Cancer, Deep Vein Thrombosis (DVT), GERD/Reflux, Thyroid Disorder Additional Past Medical History / Comment(s): lung cancer, anemia History of Any Multi-Drug Resistant Organisms: None Reported Past Surgical History: Appendectomy, Cholecystectomy, Heart Catheterization, Hysterectomy, Tubal Ligation Additional Past Surgical History / Comment(s): lung Ca, lymphoma, stem cell transplantsurgical hx: right lung lobectomy Past Anesthesia/Blood Transfusion Reactions: No Reported Reaction Past Psychological History: No Psychological Hx Reported Smoking Status: Former smoker Past Alcohol Use History: None Reported Past Drug Use History: None Reported - Past Family History Father Family Medical History: Cancer Additional Family Medical History / Comment(s): PROSTATE CANCER Mother Family Medical History: Cancer Sister(s) Family Medical History: Cancer Additional Family Medical History / Comment(s): SKIN CANCER Brother(s) Family Medical History: Cancer Additional Family Medical History / Comment(s): lung General Exam - General Exam Comments Initial Comments: GENERAL: Patient is well-developed and well-nourished. Patient is nontoxic and well- hydrated and is in mild distress. ENT: Neck is soft and supple. No significant lymphadenopathy is noted. Oropharynx is clear. Moist mucous membranes. Neck has full range of motion without eliciting any pain. EYES: The sclera were anicteric and conjunctiva were pink and moist. Extraocular movements were intact and pupils were equal round and reactive to light. Eyelids were unremarkable. PULMONARY: Unlabored respirations. Good breath sounds bilaterally. No audible rales rhonchi or wheezing was noted. CARDIOVASCULAR: There is a regular rate and rhythm without any murmurs gallops or rubs. ABDOMEN: Lower abdomen incisions from the surgery did not appear to be erythematous or infected. There is some very slight lower abdominal tenderness but no guarding or rebound SKIN: Skin is clear with no lesions or rashes and otherwise unremarkable. NEUROLOGIC: Patient is alert and oriented x3. Cranial nerves II through XII are grossly intact. Motor and sensory are also intact. Normal speech, volume and content. Symmetrical smile. MUSCULOSKELETAL: Normal extremities with adequate strength and full range of motion. No lower extremity swelling or edema. No calf tenderness. LYMPHATICS: No significant lymphadenopathy is noted PSYCHIATRIC: Normal psychiatric evaluation. Normal interpersonal interactions appears functionally intact in deals appropriately with others. No signs of depression. No signs of anxiety. Limitations: no limitations Course Vital Signs 03/22/17 03/22/17 03/22/17 09:42 10:15 10:44 Temperature 99.4 F 101.9 F H Pulse Rate 100 105 H Respiratory 16 20 Rate Blood Pressure 106/54 113/49 O2 Sat by Pulse 97 96 Oximetry 03/22/17 11:15 Temperature 100.6 F H Pulse Rate 92 Respiratory 20 Rate Blood Pressure 109/51 O2 Sat by Pulse 96 Oximetry Medical Decision Making - Medical Decision Making EKG shows normal sinus rhythm at 99 bpm MI interval is 180 QRSs 80 QT interval 340 QTC is 436. Patient's EKG shows no ST segment elevation or depression no T- wave abnormalities are noted. Patient's urine came back infected so I gave the patient Rocephin I sent off a urine culture. I went back to reevaluate the patient she states she feels considerably better. I will send the patient home with Macrobid. Patient has been informed that if she is to get worse in any way she is to return immediately - Lab Data Result diagrams: 03/22/17 10:30 03/22/17 10:30 Lab Results 03/22/17 03/22/17 03/22/17 Range/Units 10:30 10:30 10:30 WBC 3.5 L (3.8-10.6) k/uL RBC 3.08 L (3.80-5.40) m/uL Hgb 8.4 L (11.4-16.0) gm/dL Hct 25.6 L (34.0-46.0) % MCV 82.9 (80.0-100.0) fL MCH 27.2 (25.0-35.0) pg MCHC 32.8 (31.0-37.0) g/dL RDW 14.5 (11.5-15.5) % Plt Count 209 (150-450) k/uL Neutrophils % (Manual) 70.0 % Band Neutrophils % 4.0 % Lymphocytes % (Manual) 13.0 % Monocytes % (Manual) 13.0 % Neutrophils # (Manual) 2.6 (1.3-7.7) k/uL Lymphocytes # (Manual) 0.5 L (1.0-4.8) k/uL Monocytes # (Manual) 0.5 (0-1.0) k/uL Nucleated RBCs 0 (0-0) /100 WBC Polychromasia Present Hypochromasia Slight PT (9.0-12.0) sec INR (<1.1) APTT (22.0-30.0) sec Sodium 133 L (137-145) mmol/L Potassium 4.0 (3.5-5.1) mmol/L Chloride 94 L (98-107) mmol/L Carbon Dioxide 27 (22-30) mmol/L Anion Gap 12 mmol/L BUN 19 H (7-17) mg/dL Creatinine 0.88 (0.52-1.04) mg/dL Est GFR (MDRD) Af Amer >60 (>60 ml/min/1.73 sqM) Est GFR (MDRD) Non-Af >60 (>60 ml/min/1.73 sqM) Glucose 110 H (74-99) mg/dL Plasma Lactic Acid Hamilton 1.5 (0.7-2.0) mmol/L Calcium 8.8 (8.4-10.2) mg/dL Total Bilirubin 1.0 (0.2-1.3) mg/dL AST 68 H (14-36) U/L ALT 73 H (9-52) U/L Alkaline Phosphatase 231 H (38-126) U/L Troponin I (0.000-0.034) ng/mL Total Protein 6.5 (6.3-8.2) g/dL Albumin 3.6 (3.5-5.0) g/dL Urine Color Urine Appearance (Clear) Urine pH (5.0-8.0) Ur Specific Cedar (1.001-1.035) Urine Protein (Negative) Urine Glucose (UA) (Negative) Urine Ketones (Negative) Urine Blood (Negative) Urine Nitrite (Negative) Urine Bilirubin (Negative) Urine Urobilinogen (<2.0) mg/dL Ur Leukocyte Esterase (Negative) Urine RBC (0-5) /hpf Urine WBC (0-5) /hpf Urine WBC Clumps (None) /hpf Urine Bacteria (None) /hpf Urine Mucus (None) /hpf Urine Yeast (Budding) (None) /hpf 03/22/17 03/22/17 03/22/17 Range/Units 10:30 10:30 10:37 WBC (3.8-10.6) k/uL RBC (3.80-5.40) m/uL Hgb (11.4-16.0) gm/dL Hct (34.0-46.0) % MCV (80.0-100.0) fL MCH (25.0-35.0) pg MCHC (31.0-37.0) g/dL RDW (11.5-15.5) % Plt Count (150-450) k/uL Neutrophils % (Manual) % Band Neutrophils % % Lymphocytes % (Manual) % Monocytes % (Manual) % Neutrophils # (Manual) (1.3-7.7) k/uL Lymphocytes # (Manual) (1.0-4.8) k/uL Monocytes # (Manual) (0-1.0) k/uL Nucleated RBCs (0-0) /100 WBC Polychromasia Hypochromasia PT 11.1 (9.0-12.0) sec INR 1.1 (<1.1) APTT 25.4 (22.0-30.0) sec Sodium (137-145) mmol/L Potassium (3.5-5.1) mmol/L Chloride (98-107) mmol/L Carbon Dioxide (22-30) mmol/L Anion Gap mmol/L BUN (7-17) mg/dL Creatinine (0.52-1.04) mg/dL Est GFR (MDRD) Af Amer (>60 ml/min/1.73 sqM) Est GFR (MDRD) Non-Af (>60 ml/min/1.73 sqM) Glucose (74-99) mg/dL Plasma Lactic Acid Hamilton (0.7-2.0) mmol/L Calcium (8.4-10.2) mg/dL Total Bilirubin (0.2-1.3) mg/dL AST (14-36) U/L ALT (9-52) U/L Alkaline Phosphatase (38-126) U/L Troponin I <0.012 (0.000-0.034) ng/mL Total Protein (6.3-8.2) g/dL Albumin (3.5-5.0) g/dL Urine Color Yellow Urine Appearance Turbid H (Clear) Urine pH 6.0 (5.0-8.0) Ur Specific Cedar 1.015 (1.001-1.035) Urine Protein 2+ H (Negative) Urine Glucose (UA) Negative (Negative) Urine Ketones Negative (Negative) Urine Blood Moderate H (Negative) Urine Nitrite Positive H (Negative) Urine Bilirubin Negative (Negative) Urine Urobilinogen <2.0 (<2.0) mg/dL Ur Leukocyte Esterase Large H (Negative) Urine RBC 7 H (0-5) /hpf Urine WBC >182 H (0-5) /hpf Urine WBC Clumps Many H (None) /hpf Urine Bacteria Rare H (None) /hpf Urine Mucus Rare H (None) /hpf Urine Yeast (Budding) Few H (None) /hpf Disposition Clinical Impression: Urinary tract infection Disposition: HOME SELF-CARE Condition: Good Instructions: Urinary Tract Infection in Women (ED) Prescriptions: Amoxicillin/Potassium Clav [Augmentin 875-125 Tablet] 1 each PO Q12HR #28 tab Referrals: Glenroy Vazquez MD [Primary Care Provider] - 1-2 days
[2017-03-22] MEDS: SODIUM CHLORIDE 0.9% 500 ML IV SCH ×2 (10:25→11:30)
[2017-03-22] MEDS ORDERED: ONDANSETRON 4 MG/2 ML VIAL IVP STA (10:31)
[2017-03-22 10:50] LABS: ALT 73 U/L (9-52); AST 68 U/L (14-36); Alkaline Phosphatase 231 U/L (38-126); Anion Gap 12 mmol/L; Blood Urea Nitrogen 19 mg/dL (7-17); Calcium 8.8 mg/dL (8.4-10.2); Carbon Dioxide 27 mmol/L (22-30); Chloride 94 mmol/L (98-107); Glucose 110 mg/dL (74-99); Non-African American GFR(MDRD) >60 (>60 ml/min/1.73 sqM); Sodium 133 mmol/L (137-145); Total Protein 6.5 g/dL (6.3-8.2)
[2017-03-22 10:55] LABS: Aty Lym Flag Slight; CH 26.2; CHCM 31.7; HCT 25.6 % (34.0-46.0); HDW 3.26; HGB 8.4 gm/dL (11.4-16.0); Hypochromasia Slight; MCH 27.2 pg (25.0-35.0); MCHC 32.8 g/dL (31.0-37.0); MCV 82.9 fL (80.0-100.0); RBC 3.08 m/uL (3.80-5.40); RDW 14.5 % (11.5-15.5); WBC 3.5 k/uL (3.8-10.6); WBC (Perox) 3.51
[2017-03-22 11:09] LABS: Add Differential Manual Differential
[2017-03-22 11:11] LABS: INR 1.1 (<1.1); Nucleated Red Blood Cells 0 /100 WBC (0-0); Partial Thromboplastin Time 25.4 sec (22.0-30.0); Polychromasia Present; Prothrombin Time 11.1 sec (9.0-12.0); Total Cells Counted 100
--- NOTE | 2017-03-22 11:14 | XR ---
EXAMINATION TYPE: XR chest 2V DATE OF EXAM: 03/22/2017 COMPARISON: 01/06/2015 INDICATION: Fever, history of lung cancer TECHNIQUE: Frontal and lateral views of the chest are obtained. FINDINGS: The heart size is normal. The pulmonary vasculature is normal. Mild infiltrate may be at the right base. Correlate for right lower lobe pneumonia. Minimal right ple ural effusion is not excluded Postsurgical changes and deformity are through the right upper lung field. Surgical clips are in the right suprahilar region. There is rib resections. IMPRESSION: 1. Mild right lower lobe infiltrate such as pneumonia may be present. Minimal right pleural effusion is not excluded. Follow-up is recommended.
[2017-03-22 11:33] LABS: Appearance,Urine Turbid (Clear); Bacteria,Urine Rare /hpf; Bilirubin,Urine Negative (Negative); Glucose,Urine (UA) Negative (Negative); Ketones,Urine Negative (Negative); Leukocyte Esterase,Urine Large (Negative); Mucus,Urine Rare /hpf; Nitrite,Urine Positive (Negative); Particle Count 43108; Protein,Urine 2+ (Negative); RBC,Urine 7 /hpf (0-5); Specific Gravity,Urine 1.015 (1.001-1.035); UA Billing (MACRO vs. MICRO) MICRO; Urobilinogen,Urine <2.0 mg/dL (<2.0); WBC,Urine >182 /hpf (0-5)
[2017-03-22 12:42] VITALS: BP 110/53; PULSE 88; RESP 18; TEMP 98.2
== END 2017-03-22 12:44 | disposition home or self-care (01) ==
LOC: EC 09:41
DX: N39.0 Urinary tract infection, site not specified (principal); E07.9 Disorder of thyroid, unspecified; K21.9 Gastro-esophageal reflux disease without esophagitis; Z87.891 Personal history of nicotine dependence; Z79.82 Long term (current) use of aspirin; Z79.899 Other long term (current) drug therapy; Z79.51 Long term (current) use of inhaled steroids; Z85.118 Personal history of other malignant neoplasm of bronchus and lung; Z85.72 Personal history of non-Hodgkin lymphomas; Z95.818 Presence of other cardiac implants and grafts; Z90.49 Acquired absence of other specified parts of digestive tract; Z90.2 Acquired absence of lung [part of]
CPT/HCPCS: 99285; 96365; 96375; 96361 ×2; 36415; 93005; 80053; 83605; 84484; 85025; 85610; 85730; 81001; 87040; 87086; 87077; 87186; 71020; J2405; J0696

== ENCOUNTER 2017-03-25 19:29 | Inpatient (IN) | payer MEDICARE, OTHER ==
[2017-03-25] MEDS ORDERED: SODIUM CHLORIDE 0.9% 1,000 ML IV ONE ×2 (20:06)
[2017-03-25] MEDS ORDERED: ACETAMINOPHEN TAB 500 MG TAB PO STA (20:06)
[2017-03-25] MEDS ORDERED: PIPERACILLIN-TAZOBACTAM 3.375 GM in DEXTROSE/WATER 1 50ML.BAG IVPB STA (20:08)
[2017-03-25] MEDS ORDERED: RX INFO: IV CONTRAST WAS GIVEN 1 EACH MISC MISCELLANE PRN (20:12)
[2017-03-25 20:44] LABS: Aty Lym Flag Moderate; CH 26.3; CHCM 32.1; HCT 21.8 % (34.0-46.0); HGB 7.2 gm/dL (11.4-16.0); Hypochromasia Slight; MCH 27.1 pg (25.0-35.0); MCV 82.2 fL (80.0-100.0); Mean Platelet Volume 8.3; RBC 2.65 m/uL (3.80-5.40); RDW 14.9 % (11.5-15.5); WBC 2.4 k/uL (3.8-10.6); WBC (Perox) 2.32
[2017-03-25 21:00] LABS: ALT 60 U/L (9-52); AST 53 U/L (14-36); Alkaline Phosphatase 247 U/L (38-126); Anion Gap 8 mmol/L; Blood Urea Nitrogen 13 mg/dL (7-17); Calcium 8.1 mg/dL (8.4-10.2); Carbon Dioxide 28 mmol/L (22-30); Chloride 94 mmol/L (98-107); Glucose 107 mg/dL (74-99); Non-African American GFR(MDRD) >60 (>60 ml/min/1.73 sqM); Potassium 4.2 mmol/L (3.5-5.1); Sodium 130 mmol/L (137-145); Total Bilirubin 0.8 mg/dL (0.2-1.3); Total Protein 5.9 g/dL (6.3-8.2)
[2017-03-25 21:22] LABS: Add Differential Manual Differential
[2017-03-25 21:28] LABS: Nucleated Red Blood Cells 0 /100 WBC (0-0); Total Cells Counted 100
[2017-03-25 21:29] LABS: Stomatocytes Present
--- NOTE | 2017-03-25 21:43 | CT ---
EXAMINATION TYPE: CT abdomen pelvis w con DATE OF EXAM: 03/25/2017 COMPARISON: NONE HISTORY: Fever x 6 days. Diarrhea. Bladder suspension and hysterectomy [address] DLP: 694.40 mGycm Automated exposure control for dose reduction was used. TECHNIQUE: Helical acquisition of images was performed from the lung bases through the pelvis. CONTRAST: Performed without Oral Contrast and with IV Contrast, patient injected with 100 mL of Omnipaque 300. FINDINGS: There is patchy infiltrate and atelectasis at the lung bases and worse on the right side. Liver appea r normal. There is some heterogeneous enhancement in the spleen. Bile ducts are not dilated. There is no sign of pancreatic mass. There are clips from cholecystectomy. There is no adrenal mass. Kidneys show satisfactory contrast opacification. There is no hydronephrosis. There are multiple retroperiton eal lymph nodes that measure up to 2.5 cm. Abdominal aorta is atheromatous. Bladder distends smoothly . There is no ascites. I see no bony destructive process. There are spondylotic changes in the lumbar spine. There is no sign of appendicitis. There is atherosclerotic vascular calcification. There is a small amount of air in the urinary bladder consistent with recent surgery. IMPRESSION: THERE ARE ENLARGED MULTIPLE RETROPERITONEAL LYMPH NODES AND CELIAC LYMPH NODES THAT MEASURE UP TO 2.5 CM. APPEARANCE IS NONSPECIFIC. Mild heterogenicity in the spleen. The findings could be an early man ifestation of lymphoma. Patchy infiltrate and atelectasis at the lung bases.
[2017-03-25 22:02] LABS: Appearance,Urine Clear (Clear); Bilirubin,Urine Negative (Negative); Glucose,Urine (UA) Negative (Negative); Ketones,Urine Negative (Negative); Leukocyte Esterase,Urine Small (Negative); Nitrite,Urine Negative (Negative); Particle Count 3915; Protein,Urine 1+ (Negative); RBC,Urine 2 /hpf (0-5); Specific Gravity,Urine 1.015 (1.001-1.035); UA Billing (MACRO vs. MICRO) MICRO; Urobilinogen,Urine <2.0 mg/dL (<2.0); WBC,Urine 17 /hpf (0-5)
--- NOTE | 2017-03-25 23:55 | ED ---
Female Urogenital HPI - General Chief complaint: Urogenital Stated complaint: post [id number] Time Seen by Provider: 03/25/17 19:54 Source: patient, family Mode of arrival: ambulatory Limitations: no limitations - History of Present Illness Initial comments: Came in with a fever or chills feeling lethargic/she had the shakes and chills earlier. Does have a chronic snuff neck stiffness no chest pain or shortness of breath no abdominal pain no frequency urgency dysuria. On arrival her blood pressure was quite low he was 88 systolic over 52 she felt weak and dizzy - Related Data Home Medications Medication Instructions Recorded Confirmed Carvedilol [Coreg] 6.25 mg PO QAM 01/06/15 03/25/17 Levothyroxine Sodium [Synthroid] 100 mcg PO DAILY 01/06/15 03/25/17 Montelukast [Singulair] 10 mg PO HS 01/06/15 03/25/17 Arformoterol Tartrate [Brovana] 15 mcg INHALATION RT-BID 08/13/16 03/25/17 Baclofen [Lioresal] 20 mg PO HS 08/13/16 03/25/17 Budesonide [Pulmicort] 1 mg INHALATION RT-BID 08/13/16 03/25/17 Calcium Carbonate [Calcium] 600 mg PO BID 08/13/16 03/25/17 Carvedilol [Coreg] 3.125 mg PO HS 08/13/16 03/25/17 Esomeprazole Magnesium [NexIUM] 40 mg PO DAILY 08/13/16 03/25/17 Losartan [Cozaar] 25 mg PO HS 08/13/16 03/25/17 Aspirin [Adult Low Dose Aspirin EC] 81 mg PO DAILY 02/04/17 03/25/17 Diclofenac Sodium [Voltaren] 50 mg PO BID 03/04/17 03/25/17 Furosemide [Lasix] 20 mg PO DAILY 03/04/17 03/25/17 Acetaminophen-Codeine 300-30mg 1 tab PO Q4HR PRN 03/22/17 03/25/17 [Tylenol w/codeine #3] Ciprofloxacin HCl [Cipro] 500 mg PO Q12HR 03/25/17 03/25/17 Allergies Allergy/AdvReac Type Severity Reaction Status Date / Time levofloxacin [From Levaquin] Allergy Rash/Hives Verified 03/25/17 20:46 Sulfa (Sulfonamide Allergy Rash/Hives Verified 03/25/17 20:46 Antibiotics) Review of Systems ROS Statement: Those systems with pertinent positive or pertinent negative responses have been documented in the HPI. ROS Other: All systems not noted in ROS Statement are negative. Past Medical History Past Medical History: Cancer, Deep Vein Thrombosis (DVT), GERD/Reflux, Thyroid Disorder Additional Past Medical History / Comment(s): lung cancer, anemia History of Any Multi-Drug Resistant Organisms: None Reported Past Surgical History: Appendectomy, Cholecystectomy, Heart Catheterization, Hysterectomy, Tubal Ligation Additional Past Surgical History / Comment(s): lung Ca, lymphoma, stem cell transplantsurgical hx: right lung lobectomy Past Anesthesia/Blood Transfusion Reactions: No Reported Reaction Past Psychological History: No Psychological Hx Reported Smoking Status: Former smoker Past Alcohol Use History: None Reported Past Drug Use History: None Reported - Past Family History Father Family Medical History: Cancer Additional Family Medical History / Comment(s): PROSTATE CANCER Mother Family Medical History: Cancer Sister(s) Family Medical History: Cancer Additional Family Medical History / Comment(s): SKIN CANCER Brother(s) Family Medical History: Cancer Additional Family Medical History / Comment(s): lung General Exam - General Exam Comments Initial Comments: General: The patient is awake and alert, in no distress, and does not appear acutely ill. She looks pale and weak Skin: Skin is warm and dry and no rashes or lesions are noted. Eye: Pupils are equal, round and reactive to light, extra-ocular movements are intact; there is normal conjunctiva bilaterally. Ears, nose, mouth and throat: There are moist mucous membranes and no oral lesions. Neck: The neck is supple, there is no tenderness no signs of meningitis Cardiovascular: There is a regular rate and rhythm. No murmur, rub or gallop is appreciated. Respiratory: To auscultation bilateral, decreased breath sounds at the bases as well as crackles Gastrointestinal: Soft, non-distended, non-tender abdomen without masses or organomegaly noted. There is no rebound or guarding present. Bowel sounds are unremarkable. Back: There is no tenderness to palpation in the midline. There is no obvious deformity. Musculoskeletal: Normal ROM, no tenderness, There is no pedal edema. There is no calf tenderness or swelling. No cords were appreciated. Neurological: CN II-XII intact, Cranial nerves III through XII are intact. There are no obvious motor or sensory deficits. Coordination appears grossly intact. Speech is normal. Psychiatric: Cooperative, appropriate mood & affect, normal judgment. Limitations: no limitations Course Vital Signs 03/25/17 03/25/17 03/25/17 19:42 19:56 20:45 Temperature 102.1 F H 102 F H Pulse Rate 108 H 103 H 96 Respiratory 20 17 18 Rate Blood Pressure 88/52 157/102 O2 Sat by Pulse 94 L 97 Oximetry 03/25/17 03/25/17 03/25/17 21:43 22:08 23:00 Temperature 101.1 F H 99.3 F 98.2 F Pulse Rate 102 H 92 Respiratory 18 16 Rate Blood Pressure 105/54 121/58 O2 Sat by Pulse 98 97 Oximetry He was reassessed 3 times, white count is quite 02.4 and a hemoglobin is 7.2 urinalysis is positive serum lactate is 1.0 white count is probably secondary to gram-negative sepsis so low CT of the abdomen shows some retroperitoneal lymphadenopathy cc of a history of lymphoma over Dr. Little on board and has smoked (the past she be admitted to Dr. Hopkins and Dr. Swanson [facility] Medical Decision Making - Lab Data Result diagrams: 03/25/17 20:30 03/25/17 20:30 Lab Results 03/25/17 03/25/17 03/25/17 Range/Units 20:30 20:30 20:30 WBC 2.4 L (3.8-10.6) k/uL RBC 2.65 L (3.80-5.40) m/uL Hgb 7.2 L (11.4-16.0) gm/dL Hct 21.8 L (34.0-46.0) % MCV 82.2 (80.0-100.0) fL MCH 27.1 (25.0-35.0) pg MCHC 33.0 (31.0-37.0) g/dL RDW 14.9 (11.5-15.5) % Plt Count 134 L (150-450) k/uL Neutrophils % (Manual) 75.0 % Lymphocytes % (Manual) 16.0 % Monocytes % (Manual) 8.0 % Basophils % (Manual) 1.0 % Neutrophils # (Manual) 1.8 (1.3-7.7) k/uL Lymphocytes # (Manual) 0.4 L (1.0-4.8) k/uL Monocytes # (Manual) 0.2 (0-1.0) k/uL Basophils # (Manual) 0.0 (0-0.2) k/uL Nucleated RBCs 0 (0-0) /100 WBC Hypochromasia Slight Stomatocytes Present Sodium 130 L (137-145) mmol/L Potassium 4.2 (3.5-5.1) mmol/L Chloride 94 L (98-107) mmol/L Carbon Dioxide 28 (22-30) mmol/L Anion Gap 8 mmol/L BUN 13 (7-17) mg/dL Creatinine 0.89 (0.52-1.04) mg/dL Est GFR (MDRD) Af Amer >60 (>60 ml/min/1.73 sqM) Est GFR (MDRD) Non-Af >60 (>60 ml/min/1.73 sqM) Glucose 107 H (74-99) mg/dL Plasma Lactic Acid Hamilton 1.0 (0.7-2.0) mmol/L Calcium 8.1 L (8.4-10.2) mg/dL Total Bilirubin 0.8 (0.2-1.3) mg/dL AST 53 H (14-36) U/L ALT 60 H (9-52) U/L Alkaline Phosphatase 247 H (38-126) U/L Total Protein 5.9 L (6.3-8.2) g/dL Albumin 3.1 L (3.5-5.0) g/dL Urine Color Urine Appearance (Clear) Urine pH (5.0-8.0) Ur Specific [place] (1.001-1.035) Urine Protein (Negative) Urine Glucose (UA) (Negative) Urine Ketones (Negative) Urine Blood (Negative) Urine Nitrite (Negative) Urine Bilirubin (Negative) Urine Urobilinogen (<2.0) mg/dL Ur Leukocyte Esterase (Negative) Urine RBC (0-5) /hpf Urine WBC (0-5) /hpf 03/25/17 Range/Units 21:44 WBC (3.8-10.6) k/uL RBC (3.80-5.40) m/uL Hgb (11.4-16.0) gm/dL Hct (34.0-46.0) % MCV (80.0-100.0) fL MCH (25.0-35.0) pg MCHC (31.0-37.0) g/dL RDW (11.5-15.5) % Plt Count (150-450) k/uL Neutrophils % (Manual) % Lymphocytes % (Manual) % Monocytes % (Manual) % Basophils % (Manual) % Neutrophils # (Manual) (1.3-7.7) k/uL Lymphocytes # (Manual) (1.0-4.8) k/uL Monocytes # (Manual) (0-1.0) k/uL Basophils # (Manual) (0-0.2) k/uL Nucleated RBCs (0-0) /100 WBC Hypochromasia Stomatocytes Sodium (137-145) mmol/L Potassium (3.5-5.1) mmol/L Chloride (98-107) mmol/L Carbon Dioxide (22-30) mmol/L Anion Gap mmol/L BUN (7-17) mg/dL Creatinine (0.52-1.04) mg/dL Est GFR (MDRD) Af Amer (>60 ml/min/1.73 sqM) Est GFR (MDRD) Non-Af (>60 ml/min/1.73 sqM) Glucose (74-99) mg/dL Plasma Lactic Acid Hamilton (0.7-2.0) mmol/L Calcium (8.4-10.2) mg/dL Total Bilirubin (0.2-1.3) mg/dL AST (14-36) U/L ALT (9-52) U/L Alkaline Phosphatase (38-126) U/L Total Protein (6.3-8.2) g/dL Albumin (3.5-5.0) g/dL Urine Color Yellow Urine Appearance Clear (Clear) Urine pH 7.0 (5.0-8.0) Ur Specific [place] 1.015 (1.001-1.035) Urine Protein 1+ H (Negative) Urine Glucose (UA) Negative (Negative) Urine Ketones Negative (Negative) Urine Blood Trace H (Negative) Urine Nitrite Negative (Negative) Urine Bilirubin Negative (Negative) Urine Urobilinogen <2.0 (<2.0) mg/dL Ur Leukocyte Esterase Small H (Negative) Urine RBC 2 (0-5) /hpf Urine WBC 17 H (0-5) /hpf Disposition Clinical Impression: Fever, Hypotension, Sepsis Disposition: ADMITTED IP TO THIS HOSP Condition: Good Referrals: Glenroy Vazquez MD [Primary Care Provider] - 1-2 days
[2017-03-25] MEDS ORDERED: NALOXONE 0.4 MG/ML 1 ML VIAL IV PRN (23:59)
[2017-03-25] MEDS ORDERED: ONDANSETRON 4 MG/2 ML VIAL IVP PRN (23:59)
[2017-03-26] MEDS ORDERED: Acetaminophen-Codeine 300-30mg TAB PO PRN (00:05)
--- NOTE | 2017-03-26 01:04 | XR ---
EXAM: XR Chest, 2 Views CLINICAL HISTORY: Pain TECHNIQUE: Frontal and lateral views of the chest. COMPARISON: 03/22/2017 FINDINGS: Lungs: Stable postsurgical changes in the right upper hemithorax with architectural distortion and volume loss in the right lung. No left lung consolidation. Stable nonspecific interstitial prominence is chronic. Pleural space: No left pleural effusion. No pneumothorax. Heart: Cardiomediastinal silhouette. Mediastinum: See above. Bones/joints: No acute osseous abnormality. Tubes, lines and devices: Telemetry leads overlie the patient. IMPRESSION: No significant interval change since prior examination.
[2017-03-26 01:12] VITALS: BMI 54.5
[2017-03-26] MEDS: PIPERACILLIN-TAZOBACTAM 3.375 GM in DEXTROSE/WATER 1 50ML.BAG IVPB SCH ×3 (05:39→21:13)
[2017-03-26] MEDS: ACETAMINOPHEN TAB 325 MG TAB PO PRN ×2 (07:54→16:29)
[2017-03-26] MEDS: CALCIUM CARBONATE 500 MG CHEWABLE PO SCH ×2 (07:57→21:09)
[2017-03-26] MEDS: ASPIRIN 81 MG CHEW PO SCH (07:57)
[2017-03-26] MEDS: LEVOTHYROXINE 100 MCG TAB PO SCH (07:57)
[2017-03-26] MEDS: PANTOPRAZOLE 40 MG TABLET PO SCH (07:57)
[2017-03-26] MEDS: CARVEDILOL 6.25 MG TAB PO SCH (07:57)
[2017-03-26] MEDS: ETODOLAC 200 MG CAPSULE PO SCH ×2 (07:57→21:08)
[2017-03-26] MEDS: SODIUM CHLORIDE 0.9% 1,000 ML IV SCH ×2 (07:58→10:24)
[2017-03-26] MEDS: BUDESONIDE 1 MG/2 ML NEBU INHALATION SCH ×2 (08:03→19:48)
[2017-03-26] MEDS: FORMOTEROL FUMARATE 20 MCG/2 ML NEBU INHALATION SCH ×2 (08:03→19:48)
--- NOTE | 2017-03-26 10:51 | P.GSCN ---
History of Present Illness Consult date: 03/26/17 Reason for Consult: Febrile UTI Requesting physician: Fili Swanson History of present illness: She is a 71-year-old woman with mild mixed urinary incontinence, which required the use of one liner daily. She previously required 3-4 maxi pads daily. She had a cystocele, and had recently experienced difficulty voiding. 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 UDS was consistent with type 2-3 stress incontinence, with a Valsalva leak point pressure of approximately 70 cm water. She underwent a Lynx sling at the time of her RALH with anterior repair on March 09, and her Stein catheter was removed on March 16. She was seen that day in the office, and was verified to be emptying her bladder completely. She was seen in the ER on March 22 and diagnosed with a Citrobacter UTI. She was placed on Augmentin, but her condition failed to improve. She has experienced difficulty voiding, and is essentially dribbling. She has experienced fever, as well as intractable diarrhea. She states that her stool was black in color. She also reports night sweats. She denies pain. A CT scan of the abdomen and pelvis was obtained at the time of admission. This revealed the bladder to be distended, with a small amount of air in the bladder. There was no evidence of an intra- abdominal hematoma or abscess. Retroperitoneal adenopathy was noted. Review of Systems - Constitutional Reports fever, Reports night sweats - Gastrointestinal Reports diarrhea Past Medical History Past Medical History: Cancer, Deep Vein Thrombosis (DVT), GERD/Reflux, Thyroid Disorder Additional Past Medical History / Comment(s): lung cancer, anemia History of Any Multi-Drug Resistant Organisms: None Reported Past Surgical History: Appendectomy, Cholecystectomy, Heart Catheterization, Hysterectomy, Tubal Ligation Additional Past Surgical History / Comment(s): lung Ca, lymphoma, stem cell transplantsurgical hx: right lung lobectomy Past Anesthesia/Blood Transfusion Reactions: No Reported Reaction Past Psychological History: No Psychological Hx Reported Smoking Status: Former smoker - Past Family History Father Family Medical History: Cancer Additional Family Medical History / Comment(s): PROSTATE CANCER Mother Family Medical History: Myocardial Infarction ([place]) Sister(s) Family Medical History: Cancer Additional Family Medical History / Comment(s): SKIN CANCER Brother(s) Family Medical History: Cancer Additional Family Medical History / Comment(s): lung Medications and Allergies Home Medications Medication Instructions Recorded Confirmed Type Carvedilol [Coreg] 6.25 mg PO QAM 01/06/15 03/25/17 History Levothyroxine Sodium [Synthroid] 100 mcg PO DAILY 01/06/15 03/25/17 History Montelukast [Singulair] 10 mg PO HS 01/06/15 03/25/17 History Arformoterol Tartrate [Brovana] 15 mcg INHALATION RT-BID 08/13/16 03/25/17 History Baclofen [Lioresal] 20 mg PO HS 08/13/16 03/25/17 History Budesonide [Pulmicort] 1 mg INHALATION RT-BID 08/13/16 03/25/17 History Calcium Carbonate [Calcium] 600 mg PO BID 08/13/16 03/25/17 History Carvedilol [Coreg] 3.125 mg PO HS 08/13/16 03/25/17 History Esomeprazole Magnesium [NexIUM] 40 mg PO DAILY 08/13/16 03/25/17 History Losartan [Cozaar] 25 mg PO HS 08/13/16 03/25/17 History Aspirin [Adult Low Dose Aspirin EC] 81 mg PO DAILY 02/04/17 03/25/17 History Diclofenac Sodium [Voltaren] 50 mg PO BID 03/04/17 03/25/17 History Furosemide [Lasix] 20 mg PO DAILY 03/04/17 03/25/17 History Acetaminophen-Codeine 300-30mg 1 tab PO Q4HR PRN 03/22/17 03/25/17 History [Tylenol w/codeine #3] Ciprofloxacin HCl [Cipro] 500 mg PO Q12HR 03/25/17 03/25/17 History Allergies Allergy/AdvReac Type Severity Reaction Status Date / Time levofloxacin [From Levaquin] Allergy Rash/Hives Verified 03/25/17 20:46 Sulfa (Sulfonamide Allergy Rash/Hives Verified 03/25/17 20:46 Antibiotics) Surgical - Exam Vital Signs Temp Pulse Resp BP Pulse Ox 102.1 F H 108 H 20 88/52 94 L 03/25/17 19:42 03/25/17 19:42 03/25/17 19:42 03/25/17 19:42 03/25/17 19:42 - General well developed, well nourished, no distress, other (She appears weak.) - Respiratory normal respiratory effort - Abdomen Incisions healing well. Abdomen: soft, non tender, no guarding, no rigid, no rebound - Genitourinary normal external genitalia, other (A Stein catheter is in place, draining clear yellow urine. The vaginal incision is intact. The bladder is well supported. There are no adnexal masses or tenderness.) - Psychiatric oriented to time, oriented to person, oriented to place, speech is normal, memory intact Results - Labs 03/25/17 20:30 03/25/17 20:30 Abnormal Lab Results - Last 24 Hours (Table) 03/25/17 03/25/17 03/25/17 Range/Units 20:30 20:30 21:44 WBC 2.4 L (3.8-10.6) k/uL RBC 2.65 L (3.80-5.40) m/uL Hgb 7.2 L (11.4-16.0) gm/dL Hct 21.8 L (34.0-46.0) % Plt Count 134 L (150-450) k/uL Lymphocytes # (Manual) 0.4 L (1.0-4.8) k/uL Sodium 130 L (137-145) mmol/L Chloride 94 L (98-107) mmol/L Glucose 107 H (74-99) mg/dL Plasma Lactic Acid Hamilton (0.7-2.0) mmol/L Calcium 8.1 L (8.4-10.2) mg/dL AST 53 H (14-36) U/L ALT 60 H (9-52) U/L Alkaline Phosphatase 247 H (38-126) U/L Total Protein 5.9 L (6.3-8.2) g/dL Albumin 3.1 L (3.5-5.0) g/dL Urine Protein 1+ H (Negative) Urine Blood Trace H (Negative) Ur Leukocyte Esterase Small H (Negative) Urine WBC 17 H (0-5) /hpf 03/26/17 Range/Units 04:47 WBC (3.8-10.6) k/uL RBC (3.80-5.40) m/uL Hgb (11.4-16.0) gm/dL Hct (34.0-46.0) % Plt Count (150-450) k/uL Lymphocytes # (Manual) (1.0-4.8) k/uL Sodium (137-145) mmol/L Chloride (98-107) mmol/L Glucose (74-99) mg/dL Plasma Lactic Acid Hamilton 2.4 H* (0.7-2.0) mmol/L Calcium (8.4-10.2) mg/dL AST (14-36) U/L ALT (9-52) U/L Alkaline Phosphatase (38-126) U/L Total Protein (6.3-8.2) g/dL Albumin (3.5-5.0) g/dL Urine Protein (Negative) Urine Blood (Negative) Ur Leukocyte Esterase (Negative) Urine WBC (0-5) /hpf Microbiology - Last 24 Hours (Table) 03/25/17 21:44 Urine Culture - Preliminary Urine,Catheterized Diabetes panel 03/25/17 Range/Units 20:30 Sodium 130 L (137-145) mmol/L Potassium 4.2 (3.5-5.1) mmol/L Chloride 94 L (98-107) mmol/L Carbon Dioxide 28 (22-30) mmol/L BUN 13 (7-17) mg/dL Creatinine 0.89 (0.52-1.04) mg/dL Glucose 107 H (74-99) mg/dL Calcium 8.1 L (8.4-10.2) mg/dL AST 53 H (14-36) U/L ALT 60 H (9-52) U/L Alkaline Phosphatase 247 H (38-126) U/L Total Protein 5.9 L (6.3-8.2) g/dL Albumin 3.1 L (3.5-5.0) g/dL Calcium panel 03/25/17 Range/Units 20:30 Calcium 8.1 L (8.4-10.2) mg/dL Albumin 3.1 L (3.5-5.0) g/dL Pituitary panel 03/25/17 Range/Units 20:30 Sodium 130 L (137-145) mmol/L Potassium 4.2 (3.5-5.1) mmol/L Chloride 94 L (98-107) mmol/L Carbon Dioxide 28 (22-30) mmol/L BUN 13 (7-17) mg/dL Creatinine 0.89 (0.52-1.04) mg/dL Glucose 107 H (74-99) mg/dL Calcium 8.1 L (8.4-10.2) mg/dL Adrenal panel 03/25/17 Range/Units 20:30 Sodium 130 L (137-145) mmol/L Potassium 4.2 (3.5-5.1) mmol/L Chloride 94 L (98-107) mmol/L Carbon Dioxide 28 (22-30) mmol/L BUN 13 (7-17) mg/dL Creatinine 0.89 (0.52-1.04) mg/dL Glucose 107 H (74-99) mg/dL Calcium 8.1 L (8.4-10.2) mg/dL Total Bilirubin 0.8 (0.2-1.3) mg/dL AST 53 H (14-36) U/L ALT 60 H (9-52) U/L Alkaline Phosphatase 247 H (38-126) U/L Total Protein 5.9 L (6.3-8.2) g/dL Albumin 3.1 L (3.5-5.0) g/dL - Imaging CT scan - abdomen: report reviewed, image reviewed Assessment and Plan (1) Urinary tract infection Status: Acute Plan: The patient is admitted with a myriad of complaints, most notably fever, chills , night sweats, and intractable diarrhea which is black in color. A recent urine culture showed a Citrobacter UTI, and she is currently receiving Zosyn. The Stein catheter will remain in place for several days, and she will then be given another voiding trial. A stool sample will be checked for occult blood. Will seek input from Dr. Little regarding retroperitoneal adenopathy.
[2017-03-26] MEDS ORDERED: SODIUM CHLORIDE 0.9% 500 ML IV ONE ×2 (14:59→21:56)
--- NOTE | 2017-03-26 15:23 | P.HPIM ---
History of Present Illness H&P Date: 03/26/17 Chief Complaint: Fever and chills This is a very pleasant 71-year-old patient of Dr. Rivera. Patient's chronic stable medical condition include GERD, hypothyroid, COPD. On 03/09/17 patient underwent a total hysterectomy with bilateral salpingo-oophorectomy and a urethral sling operation for incontinence by Dr. Moffett and Dr. Deluca. Patient did have a Stein catheter for a week that was then removed. Patient started off with feeling very tired develop a temperature 101 and came to the ER was given Augmentin and sent home. Patient continued to feel unwell then saw Dr. Moffett he put on ciprofloxacin patient continued to feel weak and tired. Patient continued to have fevers not feeling well Dr. Moffett send the patient to get admitted. As patient retaining urine a Stein catheter was placed. Patient has nausea feeling weak and rundown. Daughter is at the bedside. 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 Patient also had lung cancer did have right upper and middle lobe lobectomy about 21 years ago. Also DVT associated with lung cancer. He has COPD History of Any Multi-Drug Resistant Organisms: None Reported Past Surgical History: Appendectomy, Cholecystectomy, Heart Catheterization, Hysterectomy, Tubal Ligation Additional Past Surgical History / Comment(s): lung Ca, lymphoma, stem cell transplantsurgical hx: right lung lobectomy Past Anesthesia/Blood Transfusion Reactions: No Reported Reaction Past Psychological History: No Psychological Hx Reported Smoking Status: Former smoker - Past Family History Father Family Medical History: Cancer Additional Family Medical History / Comment(s): PROSTATE CANCER Mother Family Medical History: Myocardial Infarction ([place]) Sister(s) Family Medical History: Cancer Additional Family Medical History / Comment(s): SKIN CANCER Brother(s) Family Medical History: Cancer Additional Family Medical History / Comment(s): lung Medications and Allergies Home Medications Medication Instructions Recorded Confirmed Type Carvedilol [Coreg] 6.25 mg PO QAM 01/06/15 03/25/17 History Levothyroxine Sodium [Synthroid] 100 mcg PO DAILY 01/06/15 03/25/17 History Montelukast [Singulair] 10 mg PO HS 01/06/15 03/25/17 History Arformoterol Tartrate [Brovana] 15 mcg INHALATION RT-BID 08/13/16 03/25/17 History Baclofen [Lioresal] 20 mg PO HS 08/13/16 03/25/17 History Budesonide [Pulmicort] 1 mg INHALATION RT-BID 08/13/16 03/25/17 History Calcium Carbonate [Calcium] 600 mg PO BID 08/13/16 03/25/17 History Carvedilol [Coreg] 3.125 mg PO HS 08/13/16 03/25/17 History Esomeprazole Magnesium [NexIUM] 40 mg PO DAILY 08/13/16 03/25/17 History Losartan [Cozaar] 25 mg PO HS 08/13/16 03/25/17 History Aspirin [Adult Low Dose Aspirin EC] 81 mg PO DAILY 02/04/17 03/25/17 History Diclofenac Sodium [Voltaren] 50 mg PO BID 03/04/17 03/25/17 History Furosemide [Lasix] 20 mg PO DAILY 03/04/17 03/25/17 History Acetaminophen-Codeine 300-30mg 1 tab PO Q4HR PRN 03/22/17 03/25/17 History [Tylenol w/codeine #3] Ciprofloxacin HCl [Cipro] 500 mg PO Q12HR 03/25/17 03/25/17 History Allergies Allergy/AdvReac Type Severity Reaction Status Date / Time levofloxacin [From Levaquin] Allergy Rash/Hives Verified 03/25/17 20:46 Sulfa (Sulfonamide Allergy Rash/Hives Verified 03/25/17 20:46 Antibiotics) Physical Exam Vitals: VITAL SIGNS: Upon presentation T-max 102.1, pulse 108, respiratory 20, blood pressure 88/52, pulse of 94% on room air GENERAL: Average built, sitting up on a chair, very tired appearing. EYES: Pupils equal. Conjunctiva normal. HEENT: External appearance of nose and ears normal, oral cavity dry mucous membrane. NECK: JVD not raised; masses not palpable. HEART: First and second heart sounds are normal; no edema. LUNGS: Respiratory rate normal; clear to auscultation. ABDOMEN: Soft, nontender, liver spleen not palpable, no masses palpable, incision [place] healing well, Stein catheter in place. LYMPHATICS: No lymph nodes palpable in the axilla and neck. PSYCH: Alert and oriented x3; mood and affect tired appearingl. NEUROLOGICAL: Cranial nerves grossly intact; no facial asymmetry, power and sensation grossly intact. Results Results: White count 2.4, hemoglobin 7.2, platelet is 134 sodium 1:30, BUN/creatinine normal, lactic acid up to 2.4, UA showing leukoesterase small CBC & Chem 7: 03/25/17 20:30 03/25/17 20:30 Labs: Abnormal Lab Results - Last 24 Hours (Table) 03/25/17 03/25/17 03/25/17 Range/Units 20:30 20:30 21:44 WBC 2.4 L (3.8-10.6) k/uL RBC 2.65 L (3.80-5.40) m/uL Hgb 7.2 L (11.4-16.0) gm/dL Hct 21.8 L (34.0-46.0) % Plt Count 134 L (150-450) k/uL Lymphocytes # (Manual) 0.4 L (1.0-4.8) k/uL Sodium 130 L (137-145) mmol/L Chloride 94 L (98-107) mmol/L Glucose 107 H (74-99) mg/dL Plasma Lactic Acid Hamilton (0.7-2.0) mmol/L Calcium 8.1 L (8.4-10.2) mg/dL AST 53 H (14-36) U/L ALT 60 H (9-52) U/L Alkaline Phosphatase 247 H (38-126) U/L Total Protein 5.9 L (6.3-8.2) g/dL Albumin 3.1 L (3.5-5.0) g/dL Urine Protein 1+ H (Negative) Urine Blood Trace H (Negative) Ur Leukocyte Esterase Small H (Negative) Urine WBC 17 H (0-5) /hpf Stool Occult Blood (Negative) 03/26/17 03/26/17 03/26/17 Range/Units 04:47 09:14 13:45 WBC (3.8-10.6) k/uL RBC (3.80-5.40) m/uL Hgb (11.4-16.0) gm/dL Hct (34.0-46.0) % Plt Count (150-450) k/uL Lymphocytes # (Manual) (1.0-4.8) k/uL Sodium (137-145) mmol/L Chloride (98-107) mmol/L Glucose (74-99) mg/dL Plasma Lactic Acid Hamilton 2.4 H* 2.3 H* (0.7-2.0) mmol/L Calcium (8.4-10.2) mg/dL AST (14-36) U/L ALT (9-52) U/L Alkaline Phosphatase (38-126) U/L Total Protein (6.3-8.2) g/dL Albumin (3.5-5.0) g/dL Urine Protein (Negative) Urine Blood (Negative) Ur Leukocyte Esterase (Negative) Urine WBC (0-5) /hpf Stool Occult Blood Positive H (Negative) Microbiology - Last 24 Hours (Table) 03/25/17 21:44 Urine Culture - Preliminary Urine,Catheterized Assessment and Plan Plan: Assessment: -Acute UTI causing severe sepsis present on admission with lactic acidosis having failed outpatient treatment causing hypotension possibly associated with genitourinary tract surgery -GERD -Hypothyroidism -COPD in a X smoker -Lung cancer with a history of right upper and middle lobe lobectomy 20 years ago. - history of non-Hodgkin lymphoma treated with stem cell transplant treated -Hypoalbuminemia as an acute phase reactant -Thrombocytopenia from sepsis -Hypo natremia likely hypoosmolar from decreased salt intake Plan: Patient will be given IV fluid boluses urine and blood cultures are done. Patient's been on IV Zosyn. Home medications are resumed. Close eye on patient 's blood pressure. Care was discussed with the patient . Lovenox for DVT prophylaxis. Follow electrolytes closely.
[2017-03-26] MEDS: IPRATROPIUM-ALBUTEROL 3 ML NEB INHALATION PRN ×2 (16:29→19:48)
[2017-03-26] MEDS: ENOXAPARIN 40 MG/0.4 ML SYRINGE SQ SCH (16:51)
[2017-03-26] MEDS ORDERED: IMMUNE GLOBULIN 1 GM/10 ML VL IV ONE (18:14)
[2017-03-26] MEDS ORDERED: RX INFO: IV CONTRAST WAS GIVEN 1 EACH MISC MISCELLANE PRN (18:16)
[2017-03-26] MEDS ORDERED: IMMUNE GLOBULIN (HUMAN-IGG) 20 GM in EMPTY BAG 1 BAG IV ONE (19:00)
[2017-03-26] MEDS ORDERED: IMMUNE GLOBULIN (HUMAN-IGG) 10 GM in EMPTY BAG 1 BAG IV ONE (19:00)
[2017-03-26] MEDS ORDERED: LOSARTAN 25 MG TAB PO SCH (21:00)
[2017-03-26] MEDS: CARVEDILOL 3.125 MG TAB PO SCH (21:07)
[2017-03-26] MEDS: DIPHENOX-ATROP 2.5-0.025 MG 1 EACH TAB PO SCH (21:08)
[2017-03-26] MEDS: BACLOFEN 10 MG TAB PO SCH (21:09)
[2017-03-26] MEDS: MONTELUKAST 10 MG TAB PO SCH (21:09)
[2017-03-26] MEDS: FILGRASTIM-SNDZ 480 MCG/0.8 ML SYRINGE SQ SCH (22:11)
--- NOTE | 2017-03-27 00:45 | P.CONS ---
History of Present Illness - Reason for Consult Consult date: 03/27/17 History of non-Hodgkin's lymphoma. Sepsis and fever - History of Present Illness The patient is a 71-year-old lady, well known to our service. She is followed by Dr. Little in the outpatient setting. He has a history of diffuse large B-cell non-Hodgkin's the wall, initially diagnosed in 2005 and treated with RCHOP, leading to remission. In 2011, she developed recurrence and underwent salvage chemotherapy with RICD, followed by autologous bone marrow transplant that was done at [facility] in [place]. She has been followed since then with Dr. Patel, with most recent office visit in 06/06. Her last PET scan was in 2014 and was negative. She had a CTA of the chest in 08/06 which was negative for evidence of adenopathy. The patient had recent bladder suspension surgery after which showed she developed fever. She was diagnosed with a UTI in the ER recently and started on antibiotic. Despite taking the antibiotics, over the last 2-3 days, the patient developed recurrent fever and shaking chills. She therefore presented to the emergency room, where she was found to be septic, with elevated heart rate as well as hypotension, blood pressure in the 80 range. She was started on IV antibiotics and fluids, and admitted. He has been seen by urology, with CT of the abdomen and pelvis revealing evidence of mesenteric and retroperitoneal adenopathy, with the maximum lymph node size 2.5 cm. patient was also noted to have new pancytopenia. Consult was therefore placed for further evaluation and recommendations Review of Systems Constitutional: Reports chills, Reports fever, Reports weight loss Eyes: denies blurred vision, denies pain Ears: deny: decreased hearing, ear discharge, earache, tinnitus Ears, nose, mouth and throat: Denies headache, Denies sore throat Cardiovascular: Reports decreased exercise tolerance Respiratory: Denies cough Gastrointestinal: Reports diarrhea Genitourinary: Reports as per HPI, Reports dysuria, Reports stress incontinence , Reports urinary frequency Menstruation: Reports postmenopausal Musculoskeletal: Reports muscle weakness Integumentary: Denies pruritus, Denies rash Neurological: Reports weakness Psychiatric: Denies anxiety, Denies depression Endocrine: Reports fatigue Hematologic/Lymphatic: Reports as per HPI Past Medical History Past Medical History: Cancer, Deep Vein Thrombosis (DVT), GERD/Reflux, Thyroid Disorder Additional Past Medical History / Comment(s): Patient had non-Hodgkin's lymphoma 2 treated with stem cell transplant. Patient also had lung cancer did have right upper and middle lobe lobectomy about 21 years ago. Also DVT associated with lung cancer. He has COPD History of Any Multi-Drug Resistant Organisms: None Reported Past Surgical History: Appendectomy, Cholecystectomy, Heart Catheterization, Hysterectomy, Tubal Ligation Additional Past Surgical History / Comment(s): lung Ca, lymphoma, stem cell transplantsurgical hx: right lung lobectomy Past Anesthesia/Blood Transfusion Reactions: No Reported Reaction Past Psychological History: No Psychological Hx Reported Smoking Status: Former smoker - Past Family History Father Family Medical History: Cancer Additional Family Medical History / Comment(s): PROSTATE CANCER Mother Family Medical History: Myocardial Infarction ([place]) Sister(s) Family Medical History: Cancer Additional Family Medical History / Comment(s): SKIN CANCER Brother(s) Family Medical History: Cancer Additional Family Medical History / Comment(s): lung Medications and Allergies Home Medications Medication Instructions Recorded Confirmed Type Carvedilol [Coreg] 6.25 mg PO [facility] 01/06/15 03/25/17 History Levothyroxine Sodium [Synthroid] 100 mcg PO DAILY 01/06/15 03/25/17 History Montelukast [Singulair] 10 mg PO HS 01/06/15 03/25/17 History Arformoterol Tartrate [Brovana] 15 mcg INHALATION RT-BID 08/13/16 03/25/17 History Baclofen [Lioresal] 20 mg PO HS 08/13/16 03/25/17 History Budesonide [Pulmicort] 1 mg INHALATION RT-BID 08/13/16 03/25/17 History Calcium Carbonate [Calcium] 600 mg PO BID 08/13/16 03/25/17 History Carvedilol [Coreg] 3.125 mg PO HS 08/13/16 03/25/17 History Esomeprazole Magnesium [NexIUM] 40 mg PO DAILY 08/13/16 03/25/17 History Losartan [Cozaar] 25 mg PO HS 08/13/16 03/25/17 History Aspirin [Adult Low Dose Aspirin EC] 81 mg PO DAILY 02/04/17 03/25/17 History Diclofenac Sodium [Voltaren] 50 mg PO BID 03/04/17 03/25/17 History Furosemide [Lasix] 20 mg PO DAILY 03/04/17 03/25/17 History Acetaminophen-Codeine 300-30mg 1 tab PO Q4HR PRN 03/22/17 03/25/17 History [Tylenol w/codeine #3] Ciprofloxacin HCl [Cipro] 500 mg PO Q12HR 03/25/17 03/25/17 History Allergies Allergy/AdvReac Type Severity Reaction Status Date / Time levofloxacin [From Levaquin] Allergy Rash/Hives Verified 03/25/17 20:46 Sulfa (Sulfonamide Allergy Rash/Hives Verified 03/25/17 20:46 Antibiotics) Physical Exam Vitals: Vital Signs Temp Pulse Pulse Resp BP BP Pulse Ox 03/26/17 16:43 98.2 F 106 H 107 H 20 145/88 99 03/26/17 16:29 106 H 03/26/17 14:51 98 F 82 16 88/45 97 03/26/17 09:21 98.5 F 03/26/17 08:22 104 H 03/26/17 08:15 102 H 03/26/17 08:14 102 H 03/26/17 08:07 108 H 03/26/17 07:00 102.5 F H 106 H 24 111/55 03/26/17 04:08 97.9 F 112 H 92 H 134/58 03/26/17 01:41 93 16 03/26/17 01:01 97.8 F 93 16 121/58 95 03/26/17 00:30 98.0 F 82 16 99/55 97 03/25/17 23:00 98.2 F 92 16 121/58 97 03/25/17 22:08 99.3 F 03/25/17 21:43 101.1 F H 102 H 18 105/54 98 03/25/17 20:45 96 18 157/102 97 03/25/17 19:56 102 F H 103 H 17 03/25/17 19:42 102.1 F H 108 H 20 88/52 94 L Intake and Output 03/26/17 03/26/17 03/26/17 06:59 14:59 22:59 Intake Total 1140 800 Output Total 1850 200 Balance -710 600 Intake: IV 800 Sodium Chloride 0.9% 1, 800 000 ml @ 100 mls/hr IV . Q10H LINDSAY Rx#:[id number] Intake, IV Titration 550 Amount Sodium Chloride 0.9% 1, 550 000 ml @ 100 mls/hr IV . Q10H ONE Rx#:[id number] Oral 590 Output: Urine 1850 200 Other: Voiding Method Indwelling Catheter Indwelling Catheter # Voids 2 Weight 144 kg - Constitutional General appearance: no acute distress - EENT Eyes: EOMI, PERRLA ENT: hearing grossly normal, normal oropharynx - Neck Neck: no lymphadenopathy Thyroid: bilateral: normal size - Respiratory Respiratory: bilateral: CTA - Cardiovascular Rhythm: regular Heart sounds: normal: S1, S2 - Gastrointestinal General gastrointestinal: normal bowel sounds, soft - Integumentary Integumentary: normal - Neurologic Neurologic: CNII-XII intact - Musculoskeletal Musculoskeletal: generalized weakness, strength equal bilaterally - Psychiatric Psychiatric: A&O x's 3, appropriate affect Results CBC & Chem 7: 03/25/17 20:30 03/25/17 20:30 Labs: Abnormal Lab Results - Last 24 Hours (Table) 03/25/17 03/25/17 03/25/17 Range/Units 20:30 20:30 21:44 WBC 2.4 L (3.8-10.6) k/uL RBC 2.65 L (3.80-5.40) m/uL Hgb 7.2 L (11.4-16.0) gm/dL Hct 21.8 L (34.0-46.0) % Plt Count 134 L (150-450) k/uL Lymphocytes # (Manual) 0.4 L (1.0-4.8) k/uL Sodium 130 L (137-145) mmol/L Chloride 94 L (98-107) mmol/L Glucose 107 H (74-99) mg/dL Plasma Lactic Acid Hamilton (0.7-2.0) mmol/L Calcium 8.1 L (8.4-10.2) mg/dL AST 53 H (14-36) U/L ALT 60 H (9-52) U/L Alkaline Phosphatase 247 H (38-126) U/L Total Protein 5.9 L (6.3-8.2) g/dL Albumin 3.1 L (3.5-5.0) g/dL Urine Protein 1+ H (Negative) Urine Blood Trace H (Negative) Ur Leukocyte Esterase Small H (Negative) Urine WBC 17 H (0-5) /hpf Stool Occult Blood (Negative) 03/26/17 03/26/17 03/26/17 Range/Units 04:47 09:14 13:45 WBC (3.8-10.6) k/uL RBC (3.80-5.40) m/uL Hgb (11.4-16.0) gm/dL Hct (34.0-46.0) % Plt Count (150-450) k/uL Lymphocytes # (Manual) (1.0-4.8) k/uL Sodium (137-145) mmol/L Chloride (98-107) mmol/L Glucose (74-99) mg/dL Plasma Lactic Acid Hamilton 2.4 H* 2.3 H* (0.7-2.0) mmol/L Calcium (8.4-10.2) mg/dL AST (14-36) U/L ALT (9-52) U/L Alkaline Phosphatase (38-126) U/L Total Protein (6.3-8.2) g/dL Albumin (3.5-5.0) g/dL Urine Protein (Negative) Urine Blood (Negative) Ur Leukocyte Esterase (Negative) Urine WBC (0-5) /hpf Stool Occult Blood Positive H (Negative) Microbiology - Last 24 Hours (Table) 03/25/17 21:44 Urine Culture - Preliminary Urine,Catheterized Assessment and Plan (1) Sepsis Narrative/Plan: Based on the acuity of the presentation, this is most likely infection related. The patient is on broad-spectrum antibiotics and IV fluids. Recommend continuation of treatment. Cultures are pending. The patient's total white cells are low, but ANC is greater than 1000. Given the drop in ANC, I will place the patient on filgrastim, to prevent further drops. There is a high probability of the patient has hypogammaglobulinemia , based on his prior history and treatment. I will therefore give her a partial dose of IVIG. IgG levels will be checked. Status: Acute (2) Pancytopenia Narrative/Plan: There has been a significant change, compared to her blood counts, last month during her surgery. Again, given the acuity of the change, this most likely represents bone marrow suppression from sepsis , the patient would be prone to the same, given history of intensive chemotherapy, including high-dose conditioning chemotherapy for autologous bone marrow transplant. As noted WBC still in the safe range. To prevent further drop, filgrastim will be added. Hemoglobin and platelets are also adequate at this time. Continue to monitor and supplement if needed Status: Acute (3) Non-Hodgkin lymphoma Narrative/Plan: The patient's computed tomography scan raises the possibility of recurrence, revealing adenopathy in the mesentery and retroperitoneum. Largest lymph node was 2.5 cm. While this can represent recurrence, this is not definitive. This will need to be compared to previous imaging. I will also check a CT of the chest. As noted, even if the patient does have recurrence, that is unlikely to be related to his sepsis presentation, and less likely to be related to his pancytopenia. His cytopenias persist despite resolution of sepsis, then lymphoma involvement of the bone marrow becomes more likely. Status: Acute
[2017-03-27] MEDS: ACETAMINOPHEN TAB 325 MG TAB PO PRN ×3 (03:50→20:53)
[2017-03-27] MEDS: IPRATROPIUM-ALBUTEROL 3 ML NEB INHALATION PRN ×5 (03:51→21:01)
[2017-03-27] MEDS: SODIUM CHLORIDE 0.9% 1,000 ML IV SCH ×4 (04:00→21:55)
[2017-03-27] MEDS: PIPERACILLIN-TAZOBACTAM 3.375 GM in DEXTROSE/WATER 1 50ML.BAG IVPB SCH ×3 (05:15→22:25)
[2017-03-27 07:48] LABS: ALT 50 U/L (9-52); AST 40 U/L (14-36); Alkaline Phosphatase 203 U/L (38-126); Anion Gap 9 mmol/L; Blood Urea Nitrogen 6 mg/dL (7-17); Calcium 7.4 mg/dL (8.4-10.2); Carbon Dioxide 22 mmol/L (22-30); Chloride 106 mmol/L (98-107); Glucose 83 mg/dL (74-99); Non-African American GFR(MDRD) >60 (>60 ml/min/1.73 sqM); Potassium 3.4 mmol/L (3.5-5.1); Sodium 137 mmol/L (137-145); Total Bilirubin 0.9 mg/dL (0.2-1.3); Total Protein 4.9 g/dL (6.3-8.2)
[2017-03-27 07:54] LABS: Basophils % (A) 0 %; CH 25.8; CHCM 29.9; Eosinophils % (A) 0 %; HCT 21.6 % (34.0-46.0); Hypochromasia Marked; Luc # (Auto) 0.16; Luc % (Auto) 2; Lymphocytes # (A) 0.4 k/uL (1.0-4.8); Lymphocytes % (A) 5 %; MCH 25.4 pg (25.0-35.0); MCHC 29.4 g/dL (31.0-37.0); MCV 86.6 fL (80.0-100.0); Monocytes # (A) 0.4 k/uL (0-1.0); Monocytes % (A) 5 %; Neutrophils # (A) 6.4 k/uL (1.3-7.7); Neutrophils % (A) 87 %; RBC 2.49 m/uL (3.80-5.40); RDW 14.9 % (11.5-15.5); WBC 7.3 k/uL (3.8-10.6); WBC (Perox) 7.02
[2017-03-27] MEDS: FORMOTEROL FUMARATE 20 MCG/2 ML NEBU INHALATION SCH ×2 (08:00→21:01)
[2017-03-27] MEDS: BUDESONIDE 1 MG/2 ML NEBU INHALATION SCH ×2 (08:00→21:01)
[2017-03-27 08:05] LABS: HGB 6.3 gm/dL (11.4-16.0)
--- NOTE | 2017-03-27 12:01 | CT ---
EXAMINATION TYPE: CT chest w con DATE OF EXAM: 03/27/2017 COMPARISON: Radiographs 03/26/[address] 08/13/2016 HISTORY: 71-year-old female sepsis, hypertension, lung CA, lymphoma TECHNIQUE: Contiguous axial scanning of the chest after the administration of 100 mL of Omnipaque 300 . Coronal/sagittal reconstructions performed. CT DLP: 448.8mGycm. Automatic exposure control utilized for a dose reduction. FINDINGS: The heart is upper limits of normal in size with trace basilar pericardial fluid. Aorta is normal caliber with conventional arch vessel branching anatomy. 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 There is new mediastinal lymphadenopathy measuring up to 1.4 cm in the right tracheobronchial angle, 1.4 cm subcarinal region, and 1.4 cm and the left hilum. New interstitial densities with patchy and confluent groundglass and small left and trace right pleur al effusions. Changes are greatest within the mid to lower lungs. Upper abdominal lymphadenopathy such as at the gastrohepatic ligament region also appears new measuri ng up to 2.2 cm and in the retroperitoneum measuring up to 1.5 cm left periaortic region. Portacaval lymph node measures up to 1.5 cm and an aortocaval lymph node measures 1.8 cm. While the spleen is not enlarged, it is larger as compared to 08/13/2016 now measuring 12.7 cm versus 10.6 cm, previously. Bones: Redemonstrated right upper lobe thoracoplasty with multiple rib deformities and chronic appear ing irregular soft tissue thickening here. No osseous destructive process seen. IMPRESSION: 1. Right upper lobe thoracoplasty changes with underlying volume loss, rib deformities, and irregular soft tissue thickening. Changes appear stable from 08/13/2016. 2. Progressive mediastinal (measuring up to 1.4 cm) and upper abdominal lymphadenopathy (measuring up to 2.2 cm). Metastatic disease and lymphoma are in the differential. The spleen has also increased i n size from 08/13/2016. 3. New patchy and confluent groundglass, septal lines, and small effusions. Correlate for CHF with pu lmonary edema or infectious etiologies. 4. 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 Findings were present on 08/13/2016. Correlate for any symptoms of subclavian steal.
[2017-03-27] MEDS: ASPIRIN 81 MG CHEW PO SCH (12:34)
[2017-03-27] MEDS: CALCIUM CARBONATE 500 MG CHEWABLE PO SCH ×2 (12:35→20:06)
[2017-03-27] MEDS: CARVEDILOL 6.25 MG TAB PO SCH (12:35)
[2017-03-27] MEDS: ETODOLAC 200 MG CAPSULE PO SCH ×2 (12:38→20:06)
[2017-03-27] MEDS: FILGRASTIM-SNDZ 480 MCG/0.8 ML SYRINGE SQ SCH (12:38)
[2017-03-27] MEDS: ENOXAPARIN 40 MG/0.4 ML SYRINGE SQ SCH (12:38)
[2017-03-27] MEDS: LEVOTHYROXINE 100 MCG TAB PO SCH (12:39)
[2017-03-27] MEDS: PANTOPRAZOLE 40 MG TABLET PO SCH (12:39)
[2017-03-27] MEDS: DIPHENOX-ATROP 2.5-0.025 MG 1 EACH TAB PO SCH ×3 (13:58→19:52)
--- NOTE | 2017-03-27 18:02 | P.PN ---
<Jeanette Urbina - Last Filed: 03/27/17 17:45> Progress Note - Text DATE OF SERVICE: 03/27/2017 PRESENTING COMPLAINT: Fever and chills INTERVAL HISTORY: This is a 71-year-old patient who underwent a total hysterectomy bilateral salpingo-oophorectomy and urethral sling operation by Dr. Moffett and Dr. Deluca. Postoperatively patient had a Stein catheter for a week and then it was removed, patient began feeling very tired developed temperature of 101 came to the ER was given Augmentin and sent home. Continued to feel unwell saw Dr. Moffett placed her on Cipro continued to feel weak and tired, continued to have fevers, Dr. Moffett sent the patient to be admitted. Stein catheter placed secondary to urinary retention. 03/27/2017: Patient lying in bed appears comfortable. Appetite fair, no further diarrhea, states she feels better than she has in the past several days. REVIEW OF SYSTEMS: Done for constitutional ,cardiovascular, GI, pulmonary with relevant findings as above. CURRENT MEDICATIONS Tylenol No. 3, DuoNeb's, baclofen, Pulmicort, Coreg, Lomotil, Lovenox, Synthroid , formoterol. PHYSICAL EXAM VITAL SIGNS: Temperature 101.1 heart rate 108 blood pressure 100/54 respiratory rate 16 oxygen saturation 97% on room air. GENERAL APPEARANCE: Lying in bed, not in distress EYES: Pupils equal. Conjunctiva normal. NECK: JVD not raised. Mass not palpable. RESPIRATORY: Respiratory effort normal. Lungs clear to auscultation. CARDIOVASCULAR: First and second sounds normal. No edema. ABDOMEN: Soft. Liver and spleen not palpable. No tenderness. No mass palpable. Incisional area healing well. Stein catheter in place. PSYCHIATRY: Alert and oriented x3. Mood and affect normal. INVESTIGATIONS: White blood cell count 7.3, hemoglobin 6.3, platelet count 1:30, potassium 3.4, calcium 7.[address]: Right upper lobe thoracoplasty changes with underlying volume loss, rib deformities irregular soft tissue thickening, changes appears stable from previous exam 08/13/2016. Progressive mediastinal and upper abdominal lymphadenopathy, metastatic disease and lymphoma are in the differential, spleen increased in size from previous exam listed above. New patchy/confluent groundglass septal lines small effusions, correlate for CHF/pulmonary edema or infectious etiology. ASSESSMENT: -Acute UTI causing severe sepsis present on admission with lactic acidosis having failed outpatient treatment causing hypotension possibly associated with genitourinary tract surgery -GERD -Hypothyroidism -COPD in a X smoker -Lung cancer with a history of right upper and middle lobe lobectomy 20 years ago. - history of non-Hodgkin lymphoma treated with stem cell transplant -Hypoalbuminemia as an acute phase reactant -Thrombocytopenia from sepsis -Hyponatremia likely hypoosmolar from decreased salt intake PLAN: Continue current medication and treatment plan, may need to consider adding infectious disease on for treatment of UTI. Patient has had 2 courses of antibiotic therapy and has had some fevers, even while she has been on antibiotic therapy. Hematology/oncology continues to follow, as does Dr. Lee from surgery [employer] statement: Patient was seen and examined by nurse practitioner Jeanette Urbina and all elements of the case discussed with attending Dr. Swanson <Fili Swanson - Last Filed: 03/27/17 19:44> Progress Note - Text Attending note. Date of service-03/27/2017 This patient was seen and examined by me today. I reviewed the note of my nurse practitioner, Ms. Urbina. Discussed with her, additional findings as below Patient is status post hysterectomy and urethral sling procedure presents with sepsis having failed outpatient treatment for UTI. Still had fevers earlier today. The feels a bit better. Did tolerate some diet. Son is at the bedside On examination: T-max 101.1 Lungs decreased breath sounds, mild wheezing, abdomen soft nontender Investigations: White count 7.3, hemoglobin 6.3, potassium 3.4 lactic acid 1.4, blood cultures are pending Assessment and plan: Sepsis picture probably from UTI. Patient's slow to respond. Consultation to infectious disease being done care was discussed with the patient and son at the bedside follow
[2017-03-27] MEDS ORDERED: LORazepam 0.5 MG TAB PO PRN (19:16)
[2017-03-27] MEDS: BACLOFEN 10 MG TAB PO SCH (20:05)
[2017-03-27] MEDS: MONTELUKAST 10 MG TAB PO SCH (20:06)
[2017-03-27] MEDS: CARVEDILOL 3.125 MG TAB PO SCH ×2 (20:10→21:57)
[2017-03-27] MEDS ORDERED: POTASSIUM CHLORIDE ORAL LIQUID 40 MEQ/30 ML CUP PO ONE (20:30)
--- NOTE | 2017-03-27 21:38 | XR ---
EXAMINATION TYPE: XR chest 1V portable DATE OF EXAM: 03/27/2017 COMPARISON: 03/26/2017 HISTORY: Short of breath TECHNIQUE: Single frontal view of the chest is obtained. FINDINGS: There is right upper lobe surgery with rib resection and numerous surgical clips. There is some volume loss in the right hemithorax. There is extensive pulmonary interstitial infiltrates. Pul monary vascularity is difficult to evaluate because of the extensive lung disease. There are chest le ads. IMPRESSION: Right upper lobectomy. Extensive pulmonary infiltrates are increased compared to yesterd ay and consistent with pulmonary edema. This could be RDS or heart failure.
[2017-03-28] MEDS: SODIUM CHLORIDE 0.9% 1,000 ML IV SCH ×3 (05:09→22:17)
[2017-03-28] MEDS: PIPERACILLIN-TAZOBACTAM 3.375 GM in DEXTROSE/WATER 1 50ML.BAG IVPB SCH (05:38)
[2017-03-28] MEDS: BUDESONIDE 1 MG/2 ML NEBU INHALATION SCH ×2 (07:08→19:39)
[2017-03-28] MEDS: FORMOTEROL FUMARATE 20 MCG/2 ML NEBU INHALATION SCH ×2 (07:08→19:39)
[2017-03-28] MEDS: IPRATROPIUM-ALBUTEROL 3 ML NEB INHALATION PRN ×3 (07:08→13:09)
[2017-03-28] MEDS: CALCIUM CARBONATE 500 MG CHEWABLE PO SCH ×2 (08:05→22:16)
[2017-03-28] MEDS: ASPIRIN 81 MG CHEW PO SCH (08:05)
[2017-03-28] MEDS: DIPHENOX-ATROP 2.5-0.025 MG 1 EACH TAB PO SCH ×3 (08:06→22:15)
[2017-03-28] MEDS: ENOXAPARIN 40 MG/0.4 ML SYRINGE SQ SCH (08:07)
[2017-03-28] MEDS: ETODOLAC 200 MG CAPSULE PO SCH ×2 (08:09→22:17)
[2017-03-28] MEDS: CARVEDILOL 6.25 MG TAB PO SCH (08:09)
[2017-03-28] MEDS: PANTOPRAZOLE 40 MG TABLET PO SCH (08:10)
[2017-03-28] MEDS: LEVOTHYROXINE 100 MCG TAB PO SCH (08:10)
[2017-03-28 11:39] LABS: CH 26.5; CHCM 30.7; HCT 26.5 % (34.0-46.0); HDW 4.43; Hypochromasia Marked; MCHC 32.2 g/dL (31.0-37.0); MCV 86.9 fL (80.0-100.0); Poikilocytosis Moderate; RBC 3.05 m/uL (3.80-5.40); RDW 15.3 % (11.5-15.5); WBC 14.1 k/uL (3.8-10.6)
[2017-03-28] MEDS ORDERED: IV VANCOMYCIN PER PHARMACY 1 EACH MISC MISCELLANE PRN (11:45)
[2017-03-28 11:52] LABS: HGB 8.5 gm/dL (11.4-16.0)
[2017-03-28] MEDS: MEROPENEM 1 GM in SODIUM CHLORIDE 0.9% 100 ML IVPB SCH ×2 (12:16→17:40)
[2017-03-28] MEDS: ACETAMINOPHEN TAB 325 MG TAB PO PRN ×2 (12:57→20:18)
[2017-03-28] MEDS ORDERED: FUROSEMIDE 10 MG/ML 4 ML VIAL IV STA (13:08)
[2017-03-28 13:23] LABS: Glucose,Whole Blood 104 mg/dL (75-99)
--- NOTE | 2017-03-28 13:31 | XR ---
EXAMINATION TYPE: XR chest 1V portable DATE OF EXAM: 03/28/2017 Comparison: 03/27/2017 Clinical History: 71-year-old female shortness of breath Findings: Heart remains upper limits of normal in size. Posterior vertebral plasty changes along the right uppe r lobe. Diffuse interstitial opacities with more patchy left midlung and right basilar opacities with underlying small right pleural effusion. Overall findings are similar. Impression: Status post right thoracoplasty changes with continued interstitial and patchy airspace opacities wit h a right pleural effusion. Correlate for continued CHF with interstitial pulmonary edema.
--- NOTE | 2017-03-28 14:09 | CT ---
EXAMINATION TYPE: CT brain wo con DATE OF EXAM: 03/28/2017 COMPARISON: NONE HISTORY: 71-year-old female with syncope, passing out. TECHNIQUE: Examination was done in axial plane without intravenous contrast. Coronal and sagittal r econstructions performed. CT DLP: 987.70 mGycm Automated exposure control for dose reduction was used. FINDINGS: There is no evidence of acute intracranial hemorrhage, acute ischemic changes, mass, mass-effect, or extra-axial fluid collection. There is no effacement of cerebral sulci or basal subarachnoid cister ns. There is no hydrocephalus. There is no midline shift. Combs-white matter distinction is preserv ed. There is mild generalized cerebral cortical volume loss. Old lacunar infarct or perivascular space le ft basal ganglia. There is mild patchy periventricular white matter hypodensity likely relating to mi ld burden of chronic small vessel ischemic disease. Paranasal sinuses and mastoid air cells are well pneumatized. Orbits and globes are intact. IMPRESSION: No acute intracranial abnormality seen.
[2017-03-28] MEDS: VANCOMYCIN 1,250 MG in SODIUM CHLORIDE 0.9% 250 ML IVPB SCH (14:29)
--- NOTE | 2017-03-28 15:27 | P.PN ---
<Jeanette Urbina - Last Filed: 03/28/17 15:01> Progress Note - Text DATE OF SERVICE: 2016 PRESENTING COMPLAINT: Fever and chills INTERVAL HISTORY: This is a 71-year-old patient who underwent a total hysterectomy bilateral salpingo-oophorectomy and urethral sling operation by Dr. Moffett and Dr. Dleuca. Postoperatively patient had a Stein catheter for a week and then it was removed, patient began feeling very tired developed temperature of 101 came to the ER was given Augmentin and sent home. Continued to feel unwell saw Dr. Moffett placed her on Cipro continued to feel weak and tired, continued to have fevers, Dr. Moffett sent the patient to be admitted. Stein catheter placed secondary to urinary retention. 03/27/2017: Patient lying in bed appears comfortable. Appetite fair, no further diarrhea, states she feels better than she has in the past several days. 03/28/2017: PROJECT/PRODUCTION MANAGER IMAGING has discussion in the hallway with patient's son and daughter. He is going to keep her absolutely get that all good and that perfect okay great thank you by Just returned from the showers, appears somewhat exhausted however states she feels good since she's had a shower. Mildly short of breath , states appetite is fair, trying to eat light foods as previously recommended, relayed an incident that occurred last night during the night, febrile episode with shortness of breath, inability to breathe, significant drop in blood pressure. Stated this situation passed, after receiving a breathing treatment, and lying down. 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 REVIEW OF SYSTEMS: Done for constitutional ,cardiovascular, GI, pulmonary with relevant findings as above. CURRENT MEDICATIONS Tylenol No. 3, DuoNeb's, baclofen, Pulmicort, Coreg, Lomotil, Lovenox, Synthroid , formoterol. PHYSICAL EXAM VITAL SIGNS: Temperature 98.3, pulse 112 respirations 16 blood pressure 123/77, oxygen saturation 96% on room air GENERAL APPEARANCE: Sitting up on the bed, not in distress, appears mildly short of breath EYES: Pupils equal. Conjunctiva normal. NECK: JVD not raised. Mass not palpable. RESPIRATORY: Respiratory effort normal. Lungs crackles to the bilateral bases. CARDIOVASCULAR: First and second sounds normal. Mild edema. ABDOMEN: Soft. Liver and spleen not palpable. No tenderness. No mass palpable. Incisional area healing well. Stein catheter in place. PSYCHIATRY: Alert and oriented x3. Mood and affect normal. INVESTIGATIONS: White blood cell count 14.1, hemoglobin 8.5, platelet count 169, CHEST X-RAY: Right upper lobectomy, extensive pulmonary infiltrates are increased compared to yesterday and consistent with pulmonary edema, could be RDS or heart failure. ASSESSMENT: Leukocytosis, likely due to UTI, worsening. -Acute UTI causing severe sepsis present on admission with lactic acidosis having failed outpatient treatment causing hypotension possibly associated with genitourinary tract surgery, slow to respond. -GERD -Hypothyroidism -COPD in a X smoker -Lung cancer with a history of right upper and middle lobe lobectomy 20 years ago. - history of non-Hodgkin lymphoma treated with stem cell transplant -Hypoalbuminemia as an acute phase reactant -Thrombocytopenia from sepsis -Hyponatremia likely hypoosmolar from decreased salt intake PLAN: Continue current medication and treatment plan, await input from infectious disease. Patient has had 2 courses of antibiotic therapy and has had some fevers, even while she has been on antibiotic therapy. Hematology/oncology continues to follow, as does Dr. Lee from surgery. Plan of care discussed with patient, son and daughter, all agreeable to the treatment plan. PROJECT/PRODUCTION MANAGER IMAGING statement: Patient was seen and examined by nurse practitioner Jeanette Urbina and all elements of the case discussed with attending Dr. Swanson <Fili Swanson - Last Filed: 03/28/17 19:03> Progress Note - Text Attending note. Date of service-03/29/2017 This patient was seen and examined by me today. I reviewed the note of my nurse practitioner, Ms. Urbina. Discussed with her, additional findings as below Patient following hysterectomy and bladder suspension surgery presented with sepsis picture. Still spiking fevers. Some shortness of breath. Eating is somewhat better. On examination: Lungs-decreased breath sounds wheezing some crackles, Investigations: Checks x-ray shows questionable infiltrate, doubt fluid Assessment and plan: Possible pneumonia, and COPD exacerbation in an ex-smoker. Patient to have fever spikes on Zosyn. At this point will DC the Zosyn, add IV meropenem, and IV vancomycin with pharmacy to dose. Consultation to pulmonary and ID was done. Nebulized bronchodilators scheduled added. Care is discussed with the patient and son at the bedside
--- NOTE | 2017-03-28 15:38 | P.PN ---
Subjective Mrs. Alaniz reports that her blood pressure has been labile. She denies pain. The Stein catheter is draining clear yellow urine. She remains afebrile. Objective - Vital Signs Vital signs: Vital Signs Temp 98.7 F 03/28/17 15:00 Pulse 101 H 03/28/17 15:00 Resp 18 03/28/17 15:00 BP 74/39 03/28/17 15:00 Pulse Ox 100 03/28/17 15:00 Intake & Output 03/27/17 03/28/17 03/28/17 18:59 06:59 18:59 Intake Total 1310 1100 1520 Output Total 3969 198 8402 Balance 310 300 -105 Intake: IV 900 700 Sodium Chloride 0.9% 1, 900 700 000 ml @ 100 mls/hr IV . Q10H [facility] Rx#:[id number] Intake, IV Titration 1000 100 Amount Meropenem 1 gm In Sodium 100 Chloride 0.9% 100 ml @ 200 mls/hr IVPB Q8HR [facility] Rx#:[id number] Sodium Chloride 0.9% 500 500 ml @ 999 mls/hr IV .Q31M ONE Rx#:[id number] Sodium Chloride 0.9% 500 500 ml @ 999 mls/hr IV .Q31M ONE Rx#:[id number] Oral 200 720 Blood Product 310 Rc As-1 Unit 310 [id number] Output: Urine 3175 413 7821 Uretheral (Stein) 1000 1025 Other: Voiding Method Indwelling Catheter Indwelling Catheter Indwelling Catheter # Voids 2 2 - Constitutional General appearance: Present: cooperative, no acute distress - Gastrointestinal General gastrointestinal: Present: soft. Absent: distended, tenderness - Labs CBC & Chem 7: 03/28/17 11:22 03/27/17 06:54 Labs: Abnormal Lab Results - Last 24 Hours (Table) 03/27/17 03/28/17 03/28/17 Range/Units 06:54 11:22 13:03 WBC 14.1 H (3.8-10.6) k/uL RBC 3.05 L (3.80-5.40) m/uL Hgb 8.5 L D (11.4-16.0) gm/dL Hct 26.5 L (34.0-46.0) % POC Glucose (mg/dL) 104 H (75-99) mg/dL Crossmatch See Detail Microbiology - Last 24 Hours (Table) 03/25/17 20:30 Blood Culture - Preliminary Blood No Growth after 48 hours Assessment and Plan (1) Urinary tract infection Status: Acute Plan: Urine and blood cultures are negative. She continues to receive meropenem, as the Citrobacter found in her urine culture dated March 22 was sensitive to meropenem. The Stein catheter will be removed on March 30 for a voiding trial.
[2017-03-28] MEDS: IPRATROPIUM-ALBUTEROL 3 ML NEB INHALATION SCH ×2 (19:37→19:39)
[2017-03-28 19:45] LABS: Anion Gap 10 mmol/L; Blood Urea Nitrogen 7 mg/dL (7-17); Calcium 8.1 mg/dL (8.4-10.2); Carbon Dioxide 24 mmol/L (22-30); Chloride 104 mmol/L (98-107); Glucose 104 mg/dL (74-99); Non-African American GFR(MDRD) 55 (>60 ml/min/1.73 sqM); Potassium 3.8 mmol/L (3.5-5.1); Sodium 138 mmol/L (137-145)
[2017-03-28] MEDS: BACLOFEN 10 MG TAB PO SCH (22:16)
[2017-03-28] MEDS: MONTELUKAST 10 MG TAB PO SCH (22:17)
[2017-03-29] MEDS: MEROPENEM 1 GM in SODIUM CHLORIDE 0.9% 100 ML IVPB SCH ×3 (00:19→18:49)
[2017-03-29] MEDS: SODIUM CHLORIDE 0.9% 1,000 ML IV SCH ×2 (00:23→09:51)
[2017-03-29 00:25] LABS: Anion Gap 10 mmol/L; Blood Urea Nitrogen 7 mg/dL (7-17); Calcium 7.8 mg/dL (8.4-10.2); Carbon Dioxide 23 mmol/L (22-30); Chloride 103 mmol/L (98-107); Glucose 112 mg/dL (74-99); Magnesium 1.3 mg/dL (1.6-2.3); Non-African American GFR(MDRD) 55 (>60 ml/min/1.73 sqM); Phosphorous 3.6 mg/dL (2.5-4.5); Potassium 3.4 mmol/L (3.5-5.1); Sodium 136 mmol/L (137-145)
[2017-03-29] MEDS: VANCOMYCIN 1,250 MG in SODIUM CHLORIDE 0.9% 250 ML IVPB SCH ×2 (00:58→13:56)
[2017-03-29] MEDS: CARVEDILOL 3.125 MG TAB PO SCH ×2 (05:32→21:45)
[2017-03-29] MEDS: IPRATROPIUM-ALBUTEROL 3 ML NEB INHALATION SCH ×2 (06:13→11:51)
[2017-03-29] MEDS: BUDESONIDE 1 MG/2 ML NEBU INHALATION SCH ×2 (06:13→19:28)
[2017-03-29] MEDS: FORMOTEROL FUMARATE 20 MCG/2 ML NEBU INHALATION SCH ×2 (07:23→19:28)
[2017-03-29] MEDS ORDERED: POTASSIUM CHLORIDE ORAL LIQUID 40 MEQ/30 ML CUP PO ONE (07:29)
[2017-03-29] MEDS: ACETAMINOPHEN TAB 325 MG TAB PO PRN (07:43)
[2017-03-29 08:09] LABS: Glucose,Whole Blood 85 mg/dL (75-99)
[2017-03-29] MEDS ORDERED: FUROSEMIDE 10 MG/ML 4 ML VIAL IV STA (08:11)
[2017-03-29 08:30] LABS: Glucose,Whole Blood 85 mg/dL (75-99)
[2017-03-29] MEDS ORDERED: Potassium Replacement Protocol 1 EACH MISC MISCELLANE PRN (08:54)
[2017-03-29] MEDS ORDERED: Magnesium Replacement Protocol 1 EACH MISC MISCELLANE PRN (08:55)
--- NOTE | 2017-03-29 09:11 | XR ---
EXAMINATION TYPE: XR chest 1V portable DATE OF EXAM: 03/29/2017 Comparison: 03/28/2017 Clinical History: 71-year-old female sob Findings: Redemonstrated right upper thoracoplasty changes with associated pleural-parenchymal thickening. Surg ical material here. Right heart margin now obscured with worsening diffuse interstitial and airspace opacities. Small effusion suspected. Impression: 1. Worsening bilateral diffuse interstitial and airspace disease. Correlate for worsening pulmonary e anderson. 2. Small right effusion. 3. Chronic right upper thoracoplasty changes.
[2017-03-29] MEDS: MAGNESIUM SULFATE-D5W PMX 1 GM in DEXTROSE/WATER 1 100ML.BAG IVPB SCH ×3 (09:50→12:10)
[2017-03-29] MEDS: POTASSIUM CHLORIDE 10 MEQ, LIDOCAINE 2% INJ 10 MG in SODIUM CHLORIDE 0.9% 100 ML IV SCH ×2 (09:50→11:03)
--- NOTE | 2017-03-29 10:08 | P.CNPUL ---
History of Present Illness Consult date: 03/29/17 Requesting physician: Fili Swanson Reason for consult: dyspnea, abnormal CXR/CT Chief complaint: Fever, chills, rigors History of present illness: This is a very pleasant 71-year-old female patient who follows with Dr. Glenroy Vazquez as her primary care physician. He has a history of hypothyroidism, gastroesophageal reflux disease, DVT, anemia. She also has a significant history of large diffuse B-cell non-Hodgkin's lymphoma diagnosed back in 2005. She was treated with R CHOP and had been in readmission. 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 She also has a history of lung cancer and did have a right upper and middle lobe lobectomies approximately 20 years ago or more. She also has a history of chronic obstructive pulmonary disease from previous smoking and she follows with Dr. Euceda in our office for the same. She presented here on 03/25/2017 with complaints of fever, shaking and lethargy. She had recently undergone a bladder suspension and developed a urinary tract infection and was treated in the outpatient setting from the emergency room on 03/22/2017 with Augmentin without much improvement. On this admission she did receive fluid resuscitation for hypotension. Last evening she developed increasing shortness of breath cough and congestion. An a team was called and she was given IV diuretics and recovered. She had a similar episode this morning was seen by Dr. Patel and additional IV Lasix was given and the patient was transferred to the intensive care unit and placed on BiPAP. Her ejection fraction from a recent 02/05/2017 cardiac catheterization revealed mildly impaired left ventricular systolic function at 45% with some mild global decrease in contractility. There was no significant obstructive coronary artery disease. Her chest x-ray did reveal worsening bilateral diffuse interstitial airspace disease with increasing pulmonary edema. There is a small right pleural effusion. There was chronic changes noted in the right upper thoracoplasty area. A computed tomography scan of the chest had been done which did reveal evidence of the right upper lobe thoracoplasty changes with underlying volume loss and rib deformities. There was some progressive mediastinal adenopathy the largest node at 1.4 cm along with abdominal lymphadenopathy with 2.2 cm which are both increased from July 2016. Metastatic disease remains in the differential. Oncology is on the case as well. He did have some pancytopenia with a drop in hemoglobin to 6.3 she received 1 unit of packed red blood cells.2 for occult blood was positive. C. difficile was negative. Currently, she is seen in the intensive care unit. She is awake and alert in no acute distress. She is tolerating the BiPAP. She is maintaining O2 saturations in the upper 90s on 60% FiO2. She is currently afebrile. Slightly tachycardic, blood pressure borderline. She is diuresing well from the IV Lasix. She also remains on bronchodilators, Perforomist and Pulmicort inhalations and Singulair. Her urine culture is pending. She is currently on vancomycin and meropenem. Review of Systems 14 point review of system was conducted. All negative other than as mentioned in the HPI. Past Medical History Past Medical History: Cancer, Deep Vein Thrombosis (DVT), GERD/Reflux, Thyroid Disorder Additional Past Medical History / Comment(s): Patient had non-Hodgkin's lymphoma 2 treated with stem cell transplant. Patient also had lung cancer did have right upper and middle lobe lobectomy about 21 years ago. Also DVT associated with lung cancer. He has COPD History of Any Multi-Drug Resistant Organisms: None Reported Past Surgical History: Appendectomy, Cholecystectomy, Heart Catheterization, Hysterectomy, Tubal Ligation Additional Past Surgical History / Comment(s): lung Ca, lymphoma, stem cell transplantsurgical hx: right lung lobectomy Past Anesthesia/Blood Transfusion Reactions: No Reported Reaction Past Psychological History: No Psychological Hx Reported Smoking Status: Former smoker - Past Family History Father Family Medical History: Cancer Additional Family Medical History / Comment(s): PROSTATE CANCER Mother Family Medical History: Myocardial Infarction (OK) Sister(s) Family Medical History: Cancer Additional Family Medical History / Comment(s): SKIN CANCER Brother(s) Family Medical History: Cancer Additional Family Medical History / Comment(s): lung Medications and Allergies Home Medications Medication Instructions Recorded Confirmed Type Carvedilol [Coreg] 6.25 mg PO QAM 01/06/15 03/25/17 History Levothyroxine Sodium [Synthroid] 100 mcg PO DAILY 01/06/15 03/25/17 History Montelukast [Singulair] 10 mg PO HS 01/06/15 03/25/17 History Arformoterol Tartrate [Brovana] 15 mcg INHALATION RT-BID 08/13/16 03/25/17 History Baclofen [Lioresal] 20 mg PO HS 08/13/16 03/25/17 History Budesonide [Pulmicort] 1 mg INHALATION RT-BID 08/13/16 03/25/17 History Calcium Carbonate [Calcium] 600 mg PO BID 08/13/16 03/25/17 History Carvedilol [Coreg] 3.125 mg PO HS 08/13/16 03/25/17 History Esomeprazole Magnesium [NexIUM] 40 mg PO DAILY 08/13/16 03/25/17 History Losartan [Cozaar] 25 mg PO HS 08/13/16 03/25/17 History Aspirin [Adult Low Dose Aspirin EC] 81 mg PO DAILY 02/04/17 03/25/17 History Diclofenac Sodium [Voltaren] 50 mg PO BID 03/04/17 03/25/17 History Furosemide [Lasix] 20 mg PO DAILY 03/04/17 03/25/17 History Acetaminophen-Codeine 300-30mg 1 tab PO Q4HR PRN 03/22/17 03/25/17 History [Tylenol w/codeine #3] Ciprofloxacin HCl [Cipro] 500 mg PO Q12HR 03/25/17 03/25/17 History Allergies Allergy/AdvReac Type Severity Reaction Status Date / Time levofloxacin [[facility]] Allergy Rash/Hives Verified 03/25/17 20:46 Sulfa (Sulfonamide Allergy Rash/Hives Verified 03/25/17 20:46 Antibiotics) Physical Exam Vitals: Vital Signs Temp Pulse Pulse Resp BP BP Pulse Ox 03/29/17 09:00 123 H 34 H 113/51 97 03/29/17 08:50 127 H 36 H 113/51 98 03/29/17 08:40 98.6 F 133 H 39 H 132/65 96 03/29/17 07:51 91 L 03/29/17 07:45 98 F 130 H 28 H 152/74 78 L 03/29/17 07:33 76 03/29/17 07:23 68 03/29/17 06:25 99 03/29/17 06:13 94 03/28/17 23:59 98.7 F 98 20 100/59 97 03/28/17 23:31 100 20 03/28/17 23:00 99.6 F 100 20 100/50 96 03/28/17 22:21 101.3 F H 107 H 20 104/57 97 03/28/17 20:04 108 H 03/28/17 19:55 108 H 03/28/17 19:54 108 H 03/28/17 19:40 100 98 03/28/17 16:00 101 H 18 03/28/17 15:00 98.7 F 101 H 18 74/39 100 03/28/17 13:21 109 H 03/28/17 13:10 98.0 F 112 H 24 103/51 95 03/28/17 12:44 98.0 F 117 H 20 168/74 03/28/17 11:31 82 03/28/17 11:18 77 Intake and Output 03/28/17 03/29/17 03/29/17 22:59 06:59 14:59 Intake Total 1430 10 Output Total 1425 1525 785 Balance 5 -1525 -775 Intake: IV 750 10 Sodium Chloride 0.9% 1, 750 000 ml @ 100 mls/hr IV . Q10H [facility] Rx#:[id number] Sodium Chloride 0.9% 1, 10 000 ml @ 20 mls/hr IV . Q24H [facility]IND[facility]Y Rx#:[id number] Oral 680 Output: Urine 1425 1525 785 Uretheral (Stein) 225 925 Other: Voiding Method Indwelling Catheter Indwelling Catheter # Voids 2 2 GENERAL EXAM: Alert, fairly comfortable in slight respiratory distress. HEAD: Normocephalic. EYES: Normal reaction of pupils, equal size. NOSE: Clear with pink turbinates. THROAT: No erythema or exudates. NECK: No masses, light JVD. CHEST: No chest wall deformity, evidence of previous surgery. LUNGS: Equal air entry with crackles in the bilateral posterior bases. CVS: S1 and S2 normal with no audible murmurs, regular rhythm. Tachycardic. ABDOMEN: Soft, normal bowel sounds, no guarding or rigidity. Extremities: There is trace peripheral edema. No clubbing, no cyanosis. Peripheral pulses are intact. Results - Laboratory Findings CBC and BMP: 03/28/17 11:22 03/29/17 00:00 Abnormal lab findings: Abnormal Labs 03/25/17 03/25/17 03/25/17 20:30 20:30 21:44 WBC 2.4 L RBC 2.65 L Hgb 7.2 L Hct 21.8 L MCHC Plt Count 134 L Lymphocytes # Lymphocytes # (Manual) 0.4 L Sodium 130 L Potassium Chloride 94 L BUN Glucose 107 H POC Glucose (mg/dL) Plasma Lactic Acid Hamilton Calcium 8.1 L Magnesium AST 53 H ALT 60 H Alkaline Phosphatase 247 H Total Protein 5.9 L Albumin 3.1 L Urine Protein 1+ H Urine Blood Trace H Ur Leukocyte Esterase Small H Urine WBC 17 H Stool Occult Blood Crossmatch 03/26/17 03/26/17 03/26/17 04:47 09:14 13:45 WBC RBC Hgb Hct MCHC Plt Count Lymphocytes # Lymphocytes # (Manual) Sodium Potassium Chloride BUN Glucose POC Glucose (mg/dL) Plasma Lactic Acid Hamilton 2.4 H* 2.3 H* Calcium Magnesium AST ALT Alkaline Phosphatase Total Protein Albumin Urine Protein Urine Blood Ur Leukocyte Esterase Urine WBC Stool Occult Blood Positive H Crossmatch 03/27/17 03/27/17 03/27/17 06:54 06:54 06:54 WBC RBC 2.49 L Hgb 6.3 L* Hct 21.6 L MCHC 29.4 L Plt Count 130 L Lymphocytes # 0.4 L Lymphocytes # (Manual) Sodium Potassium 3.4 L Chloride BUN 6 L Glucose POC Glucose (mg/dL) Plasma Lactic Acid Hamilton Calcium 7.4 L Magnesium AST 40 H ALT Alkaline Phosphatase 203 H Total Protein 4.9 L Albumin 2.4 L Urine Protein Urine Blood Ur Leukocyte Esterase Urine WBC Stool Occult Blood Crossmatch See Detail 03/28/17 03/28/17 03/28/17 11:22 13:03 19:20 WBC 14.1 H RBC 3.05 L Hgb 8.5 L D Hct 26.5 L MCHC Plt Count Lymphocytes # Lymphocytes # (Manual) Sodium Potassium Chloride BUN Glucose 104 H POC Glucose (mg/dL) 104 H Plasma Lactic Acid Hamilton Calcium 8.1 L Magnesium AST ALT Alkaline Phosphatase Total Protein Albumin Urine Protein Urine Blood Ur Leukocyte Esterase Urine WBC Stool Occult Blood Crossmatch 03/29/17 00:00 WBC RBC Hgb Hct MCHC Plt Count Lymphocytes # Lymphocytes # (Manual) Sodium 136 L Potassium 3.4 L Chloride BUN Glucose 112 H POC Glucose (mg/dL) Plasma Lactic Acid Hamilton Calcium 7.8 L Magnesium 1.3 L AST ALT Alkaline Phosphatase Total Protein Albumin Urine Protein Urine Blood Ur Leukocyte Esterase Urine WBC Stool Occult Blood Crossmatch - Diagnostic Findings Chest x-ray: image reviewed CT scan - chest: image reviewed Assessment and Plan Plan: Impression: #1 Acute hypoxic respiratory failure secondary to acute pulmonary edema requiring diuretics and BiPAP support. #2 Acute exacerbation of chronic systolic congestive heart failure with estimated ejection fraction 45%. #3 Acute pancytopenia with a hemoglobin of 6.3 requiring 1 unit of transfused used red blood cells. Most recent hemoglobin 8.5. #4 Enlarged mediastinal and upper abdominal lymph nodes with concerns for prostatic disease versus lymphoma. #5 History of non-Hodgkin's lymphoma, diffuse large B-cell initially in 2005 and a recurrence in 2011. PET scan in 2014 was negative as was a CT angiogram of the chest in July 2016. #6 Remote history of lung cancer status post right upper and middle lobe lobectomies greater than 20 years ago. #7 Chronic obstructive pulmonary disease. #8 Remote history of smoking. #9 Recent bladder suspension with suspected acute urinary tract infection. Treated with Augmentin in the outpatient setting. #10 Hypothyroidism. #11 History of DVT. #12 Gastroesophageal reflux disease. Plan: The patient was seen and evaluated by Dr. Patel. He did request a transfer to the intensive care unit. She was placed on BiPAP 12/5 and currently at 60% FiO2 to maintain O2 saturations in the 90s. We'll plan to titrate that down as she recovers. She was given an additional dose of IV Lasix and is scheduled to 40 mg every 8 hours she remains on her pulmonary medications including bronchodilators, Pulmicort and Perforomist inhalations and Singulair. She is on antibiotics in the form of vancomycin and meropenem per infectious disease. She is on Lovenox for DVT prophylaxis and Protonix for GI prophylaxis. We will await further input from oncology to see if a mediastinal or other lymph node biopsy should be performed and she recovers. The interim, we'll continue to monitor her closely. We'll continue to follow and make recommendations based on her clinical status. Time with Patient: Greater than 30
[2017-03-29 10:13] LABS: Basophils % (A) 0 %; CH 26.3; CHCM 30.3; Eosinophils # (A) 0.1 k/uL (0-0.7); Eosinophils % (A) 1 %; HCT 29.9 % (34.0-46.0); HDW 4.18; HGB 9.4 gm/dL (11.4-16.0); Hypochromasia Marked; Luc # (Auto) 0.21; Luc % (Auto) 2; Lymphocytes # (A) 0.3 k/uL (1.0-4.8); Lymphocytes % (A) 3 %; MCH 27.6 pg (25.0-35.0); MCHC 31.6 g/dL (31.0-37.0); MCV 87.3 fL (80.0-100.0); Mean Platelet Volume 7.8; Monocytes # (A) 0.3 k/uL (0-1.0); Monocytes % (A) 3 %; Neutrophils % (A) 91 %; Poikilocytosis Moderate; RBC 3.42 m/uL (3.80-5.40); RDW 15.4 % (11.5-15.5); WBC 10.9 k/uL (3.8-10.6)
[2017-03-29] MEDS: MAGNESIUM OXIDE 400 MG TAB PO SCH ×2 (11:02→21:45)
[2017-03-29] MEDS: CARVEDILOL 6.25 MG TAB PO SCH (11:05)
[2017-03-29] MEDS: DIPHENOX-ATROP 2.5-0.025 MG 1 EACH TAB PO SCH ×3 (12:03→21:45)
[2017-03-29] MEDS: CALCIUM CARBONATE 500 MG CHEWABLE PO SCH ×2 (12:03→21:45)
[2017-03-29] MEDS: ETODOLAC 200 MG CAPSULE PO SCH ×2 (12:03→21:45)
[2017-03-29] MEDS: ENOXAPARIN 40 MG/0.4 ML SYRINGE SQ SCH (12:03)
[2017-03-29] MEDS: PANTOPRAZOLE 40 MG TABLET PO SCH (12:04)
[2017-03-29] MEDS: ASPIRIN 81 MG CHEW PO SCH (12:04)
[2017-03-29] MEDS: LEVOTHYROXINE 100 MCG TAB PO SCH (12:04)
[2017-03-29] MEDS ORDERED: PROPOFOL 50 ML IV ONE (13:20)
[2017-03-29] MEDS ORDERED: MIDAZOLAM 2 MG/2 ML VIAL ONE ×2 (13:33→15:34)
[2017-03-29] MEDS ORDERED: SUCCINYLCHOLINE CHLORIDE 100 MG/5 ML SYR IV ONE (13:33)
[2017-03-29] MEDS ORDERED: MORPHINE SULFATE 4 MG/ML SYRINGE ONE (13:36)
[2017-03-29] MEDS ORDERED: MORPHINE SULFATE 4 MG/ML SYRINGE IVP STA (13:39)
[2017-03-29] MEDS ORDERED: MIDAZOLAM (PF) 1 MG/ML 5 ML VIAL IV STA (13:39)
[2017-03-29] MEDS: PROPOFOL 500 MG in EMPTY BAG 1 BAG IV SCH ×3 (13:55→23:09)
[2017-03-29] MEDS ORDERED: NOREPINEPHRIN 4 MG-0.9% NS PMX 4 MG/250 ML ML IV ONE (14:16)
--- NOTE | 2017-03-29 14:16 | XR ---
EXAMINATION TYPE: XR chest 1V portable DATE OF EXAM: 03/29/2017 COMPARISON: Today HISTORY: Tube placement TECHNIQUE: Single frontal view of the chest is obtained. FINDINGS: There is endotracheal tube that appears in good position. There is right upper lobectomy w ith surgical clips. There is pulmonary edema. Nasogastric tube appears in good position in the body o f the stomach. There are chest leads. IMPRESSION: Endotracheal tube is in good position. There is significant pulmonary edema consistent w ith RDS or heart failure.
[2017-03-29 14:42] LABS: ABG Base Excess -3.6 mmol/L; ABG HCO3 22 mmol/L (21-25); ABG PCO2 46 mmHg (35-45); ABG PO2 122 mmHg (83-108); ABG TCO2 23 mmol/L (19-24)
[2017-03-29] MEDS: NOREPINEPHRIN 4 MG-0.9% NS PMX 4 MG/250 ML ML IV SCH ×3 (15:00→23:41)
[2017-03-29] MEDS: IPRATROPIUM 0.5 MG/2.5 ML NEBU INHALATION SCH ×2 (15:21→19:28)
[2017-03-29] MEDS: LEVALBUTEROL NEB (CONC) 1.25 MG/0.5 ML AMP INHALATION SCH ×2 (15:21→19:28)
--- NOTE | 2017-03-29 15:53 | P.PN ---
Progress Note - Text Addendum: Progress note dated 03/28/2017, date of service incorrect should be 03/28/2017.
[2017-03-29] MEDS ORDERED: SODIUM CHLORIDE 0.9% 2,000 ML IV ONE (16:30)
--- NOTE | 2017-03-29 17:35 | P.PN ---
<Jeanette Urbnia - Last Filed: 03/29/17 17:12> Progress Note - Text DATE OF SERVICE: 03/29/2017 PRESENTING COMPLAINT: Fever and chills INTERVAL HISTORY: This is a 71-year-old patient who underwent a total hysterectomy bilateral salpingo-oophorectomy and urethral sling operation by Dr. Moffett and Dr. Deluca. Postoperatively patient had a Stein catheter for a week and then it was removed, patient began feeling very tired developed temperature of 101 came to the ER was given Augmentin and sent home. Continued to feel unwell saw Dr. Moffett placed her on Cipro continued to feel weak and tired, continued to have fevers, Dr. Moffett sent the patient to be admitted. Stein catheter placed secondary to urinary retention. 03/27/2017: Patient lying in bed appears comfortable. Appetite fair, no further diarrhea, states she feels better than she has in the past several days. 03/28/2017: BATH TESTER has discussion in the hallway with patient's son and daughter. Just returned from the showers, appears somewhat exhausted however states she feels good since she's had a shower. Mildly short of breath, states appetite is fair, trying to eat light foods as previously recommended, relayed an incident that occurred last night during the night, febrile episode with shortness of breath, inability to breathe, significant drop in blood pressure. Stated this situation passed, after receiving a breathing treatment, and lying down. BATH TESTER front desk assistant last night and aware of above situation, ordered a chest x-ray , revealed pulmonary congestion, however no Lasix given due to sudden drop in blood pressure and resolution of situation on its own. 03/29/2017: Transferred to ICU early this morning via A team recommendations. Patient experienced another episode of shaking, shortness of breath, however this episode was different that as the patient did not rebound from treatment interventions. Patient seen in ICU and currently on BiPAP, resting comfortably , tolerating BiPAP well. Last BM 03/28/2017. Patient is a soft diet, and is tolerating that when not on the BiPAP. Patient received Lasix and diuresed well. Daughter at the bedside, discussion regarding patient's care, course of treatment discussed with her, questions answered. REVIEW OF SYSTEMS: Done for constitutional ,cardiovascular, GI, pulmonary with relevant findings as above. CURRENT MEDICATIONS Tylenol No. 3, DuoNeb's, baclofen, Pulmicort, Coreg, Lomotil, Lovenox, Synthroid , formoterol. IV Lasix 40 mg every 8 hours PHYSICAL EXAM VITAL SIGNS: temperature 98.6, pulse 127, respiratory rate 36, blood pressure 132/65, oxygen saturation 96% on BiPAP at 100% FiO2. GENERAL APPEARANCE: Lying in the bed on BiPAP, tolerating BiPAP well. EYES: Pupils equal. Conjunctiva normal. NECK: JVD not raised. Mass not palpable. RESPIRATORY: Respiratory effort normal. Lungs crackles to the bilateral bases. CARDIOVASCULAR: First and second sounds normal. Mild edema. ABDOMEN: Soft. Liver and spleen not palpable. No tenderness. No mass palpable. Incisional area healing well. Stein catheter in place. PSYCHIATRY: Alert and oriented but unable to speak much at this time. Mood and affect tired and somewhat anxious appearing. INVESTIGATIONS: White blood cell count 14.1, hemoglobin 8.5, platelet count 169, CHEST X-RAY: Right upper lobectomy, extensive pulmonary infiltrates are increased compared to yesterday and consistent with pulmonary edema, could be RDS or heart failure. ASSESSMENT: Leukocytosis, likely due to UTI, worsening. -Acute UTI causing severe sepsis present on admission with lactic acidosis having failed outpatient treatment causing hypotension possibly associated with genitourinary tract surgery, slow to respond. -GERD -Hypothyroidism -COPD in a X smoker -Lung cancer with a history of right upper and middle lobe lobectomy 20 years ago. - history of non-Hodgkin lymphoma treated with stem cell transplant -Hypoalbuminemia as an acute phase reactant -Thrombocytopenia from sepsis -Hyponatremia likely hypoosmolar from decreased salt intake -Acute hypoxic respiratory failure secondary to acute pulmonary edema requiring diuretics and BiPAP support. PLAN: We'll continue with ICU care, pulmonology cardiology hematology and infectious disease all following. We'll continue BiPAP per pulmonology's recommendations as well as IV Lasix 40 mg every 8 hours, additionally we will continue bronchodilators Pulmicort performomist inhalations and Singulair. Antibiotic therapy continues in the form of vancomycin and meropenem per infectious disease. Plan of care discussed with daughter at the bedside, questions answered, BATH TESTER state agreeable to current plan of care. BATH TESTER statement: Patient was seen and examined by nurse practitioner Jeanette Urbina and all elements of the case discussed with attending Dr. Swanson <Fili Swanson - Last Filed: 03/29/17 19:52> Progress Note - Text Attending note. Date of service-03/29/2017 This patient was seen and examined by me today. I reviewed the note of my nurse practitioner, Ms. Urbina. Discussed with her, additional findings as below. Patient is initially is admitted with what appears to be sepsis picture, from UTI with recent sling surgery and hysterectomy. Today patient went into acute respiratory failure was transferred to the ICU, was put on BiPAP and then had to be intubated. On examination: T-max 103.2, pulse 109 respiration 18, blood pressure 78/49 Investigations: White count 10.9, hemoglobin 9.4 potassium 3.4 Assessment and plan: -Severe sepsis persist on the patient being on IV meropenem and IV vancomycin initially from UTI from recent surgery then patient felt to have pneumonia -Acute severe hypoxia respiratory failure, felt to be from pneumonia and not sure that his fluid overload component, now on ventilator support Continue ICU. Spoke to the son at the bedside. Patient being followed by ride assembly supervisor and infectious disease and lpn. Recent cardiac catheterization did not show any significant cardiac disease showed an EF of 45%. Prognosis guarded
[2017-03-29] MEDS: FUROSEMIDE 10 MG/ML 4 ML VIAL IV SCH (17:43)
[2017-03-29] MEDS ORDERED: CHLORHEXIDINE GLUCONATE 15 ML CUP MUCOUS MEM SCH (21:00)
[2017-03-29] MEDS: MONTELUKAST 10 MG TAB PO SCH (21:45)
[2017-03-29] MEDS: BACLOFEN 10 MG TAB PO SCH (21:45)
[2017-03-30] MEDS: VANCOMYCIN 1,250 MG in SODIUM CHLORIDE 0.9% 250 ML IVPB SCH ×2
[2017-03-30] MEDS ORDERED: IPRATROPIUM 0.5 MG/2.5 ML NEBU INHALATION ONE
[2017-03-30] MEDS ORDERED: LEVALBUTEROL NEB (CONC) 1.25 MG/0.5 ML AMP INHALATION ONE
[2017-03-30] MEDS: NOREPINEPHRIN 4 MG-0.9% NS PMX 4 MG/250 ML ML IV SCH ×4 (01:55→07:36)
[2017-03-30] MEDS: FUROSEMIDE 10 MG/ML 4 ML VIAL IV SCH ×2 (04:33→09:59)
[2017-03-30] MEDS: IPRATROPIUM 0.5 MG/2.5 ML NEBU INHALATION SCH ×3 (04:46→12:51)
[2017-03-30] MEDS: LEVALBUTEROL NEB (CONC) 1.25 MG/0.5 ML AMP INHALATION SCH ×3 (04:46→12:51)
[2017-03-30 05:18] LABS: Basophils # (A) 0.1 k/uL (0-0.2); HCT 34.8 % (34.0-46.0); Hypochromasia Marked; Luc % (Auto) 3; Poikilocytosis Moderate
[2017-03-30 05:19] LABS: Basophils % (A) 0 %; CH 25.4; CHCM 27.7; Eosinophils % (A) 0 %; HDW 4.14; HGB 10.3 gm/dL (11.4-16.0); Luc # (Auto) 0.96; Lymphocytes # (A) 1.9 k/uL (1.0-4.8); Lymphocytes % (A) 6 %; MCH 27.4 pg (25.0-35.0); MCHC 29.6 g/dL (31.0-37.0); Monocytes # (A) 1.1 k/uL (0-1.0); Monocytes % (A) 4 %; Neutrophils # (A) 27.4 k/uL (1.3-7.7); Neutrophils % (A) 87 %; RBC 3.76 m/uL (3.80-5.40); RDW 15.5 % (11.5-15.5); WBC (Perox) 32.21
[2017-03-30 05:21] LABS: MCV 92.6 fL (80.0-100.0); WBC 31.5 k/uL (3.8-10.6)
[2017-03-30 05:23] LABS: ABG PCO2 61 mmHg (35-45); ABG PH 7.12 (7.35-7.45); ABG PO2 92 mmHg (83-108)
[2017-03-30 05:24] LABS: ABG Base Excess -8.6 mmol/L; ABG HCO3 19 mmol/L (21-25); ABG TCO2 21 mmol/L (19-24)
[2017-03-30] MEDS: PROPOFOL 500 MG in EMPTY BAG 1 BAG IV SCH ×2 (05:25→09:20)
[2017-03-30 05:26] LABS: Calcium 7.1 mg/dL (8.4-10.2); Magnesium 2.1 mg/dL (1.6-2.3); Phosphorous 5.2 mg/dL (2.5-4.5); Potassium 4.5 mmol/L (3.5-5.1)
[2017-03-30] MEDS ORDERED: SODIUM CHLORIDE 0.9% 1,000 ML IV SCH ×2 (07:00→09:45)
[2017-03-30 08:20] VITALS: TEMP 98.6
[2017-03-30] MEDS: BUDESONIDE 1 MG/2 ML NEBU INHALATION SCH (08:27)
--- NOTE | 2017-03-30 08:35 | XR ---
EXAMINATION TYPE: XR chest 1V portable DATE OF EXAM: 03/30/2017 COMPARISON: Prior chest x-ray 03/29/2017 HISTORY: Intubated TECHNIQUE: Single frontal view of the chest is obtained. FINDINGS: Endotracheal tube is superimposed over the tracheal air column at the level of the thoraci c inlet. Chest wall deformity in the upper right chest. Postop changes are stable. NG tube again note d, there are overlying cardiac leads. Bilateral airspace disease, interstitial changes are not signif icantly changed. Heart size is likely stable. No evident pneumothorax. Difficult to exclude small eff usion. IMPRESSION: Similar findings to prior exam. Correlate to exclude congestive heart failure, pneumonia , ARDS. Follow-up is recommended.
[2017-03-30] MEDS ORDERED: LEVOTHYROXINE IVP 100 MCG/5 ML VIAL IV SCH (09:00)
[2017-03-30] MEDS: ENOXAPARIN 40 MG/0.4 ML SYRINGE SQ SCH (09:11)
[2017-03-30] MEDS: MEROPENEM 1 GM in SODIUM CHLORIDE 0.9% 100 ML IVPB SCH ×3 (09:11)
[2017-03-30] MEDS: SODIUM CHLORIDE 0.9% 1,000 ML IV SCH (09:11)
[2017-03-30] MEDS: MAGNESIUM OXIDE 400 MG TAB PO SCH (09:12)
[2017-03-30] MEDS: PANTOPRAZOLE 40 MG TABLET PO SCH (09:15)
[2017-03-30] MEDS: ASPIRIN 81 MG CHEW PO SCH (09:15)
[2017-03-30] MEDS ORDERED: DRY MOUTH SPRAY 44.3 SPRAY/44.3 ML SPRAY MUCOUS MEM PRN (09:42)
[2017-03-30] MEDS ORDERED: MORPHINE SULFATE 4 MG/ML SYRINGE IV PRN (09:42)
[2017-03-30] MEDS ORDERED: MORPHINE SULFATE 4 MG/ML SYRINGE IVP ONE (09:42)
[2017-03-30] MEDS ORDERED: LORazepam 2 MG/ML SYRINGE IV PRN (09:42)
[2017-03-30] MEDS ORDERED: SCOPOLAMINE 1.5MG/72HR PATCH TRANSDERM PRN (09:42)
[2017-03-30] MEDS ORDERED: MORPHINE SULFATE (100 MG/2 ML) 100 MG in SODIUM CHLORIDE 0.9% 100 ML IV SCH (09:45)
[2017-03-30] MEDS: DIPHENOX-ATROP 2.5-0.025 MG 1 EACH TAB PO SCH (10:01)
--- NOTE | 2017-03-30 10:37 | ECHOF ---
Referral Reason:assess LV function MEASUREMENTS -------- HEIGHT: 162.6 cm WEIGHT: 82.6 kg BP: 84/47 RVIDd: 2.2 cm (< 3.3) IVSd: 1.1 cm (0.6 - 1.1) LVIDd: 4.4 cm (3.9 - 5.3) LVPWd: 1.0 cm (0.6 - 1.1) IVSs: 1.2 cm LVIDs: 3.3 cm LVPWs: 1.4 cm LA Diam: 2.7 cm (2.7 - 3.8) LAESV Index (A-L): 12.65 ml/m Ao Diam: 3.2 cm (2.0 - 3.7) AV Cusp: 1.9 cm (1.5 - 2.6) MV EXCURSION: 14.382 mm (> 18.000) MV EF SLOPE: 158 mm/s (70 - 150) EPSS: 1.2 cm MV E Pawel: 0.73 m/s MV DecT: 127 ms MV A Pawel: 1.07 m/s MV E/A Ratio: 0.68 RAP: 5.00 mmHg RVSP: 29.17 mmHg FINDINGS -------- Sinus rhythm. Resting tachycardia (HR>100bpm). This was a technically adequate study. The left ventricular size is normal. There is borderline concentric left ventricular hypertrophy. Overall left ventricular systolic function is severely impaired with, an EF between 20 - 25 %. Mid anterior LV wall motion is akinetic. Apical anterior LV wall motion is akinetic. Apical lateral LV wall motion is akinetic. Apical inferior LV wall motion is akinetic. Apical septum LV wall motion is akinetic. The right ventricle is normal in size. Normal LA size by volume 22+/-6 ml/m2. The right atrium is normal in size. Aortic valve is trileaflet and is mildly thickened. Mild mitral annular calcification present. There is trace to mild mitral regurgitation. Mild tricuspid regurgitation present. Right ventricular systolic pressure is normal at < 35 mmHg. The pulmonic valve was not well visualized. The aortic root size is normal. There is no pericardial effusion. CONCLUSIONS -------- 1. Sinus rhythm. 2. Normal LA size by volume 22+/-6 ml/m2. 3. Aortic valve is trileaflet and is mildly thickened. 4. Mild mitral annular calcification present. 5. There is trace to mild mitral regurgitation. 6. Mild tricuspid regurgitation present. 7. Right ventricular systolic pressure is normal at < 35 mmHg. 8. The pulmonic valve was not well visualized. 9. The aortic root size is normal. 10. There is no pericardial effusion. 11. Resting tachycardia (HR>100bpm). 12. This was a technically adequate study. 13. There is borderline concentric left ventricular hypertrophy. 14. Overall left ventricular systolic function is severely impaired with, an EF between 20 - 25 %. 15. Apical anterior LV wall motion is akinetic. 16. Apical lateral LV wall motion is akinetic. 17. Apical inferior LV wall motion is akinetic. 18. Apical septum LV wall motion is akinetic. [facility] [employer]ACIER GUIDE: Azucena Maravilla RDCS
--- NOTE | 2017-03-30 10:49 | P.PN ---
Subjective This is a very pleasant 71-year-old female patient who follows with Dr. Glenroy Vazquez as her primary care physician. He has a history of hypothyroidism, gastroesophageal reflux disease, DVT, anemia. She also has a significant history of large diffuse B-cell non-Hodgkin's lymphoma diagnosed back in 2005. She was treated with R CHOP and had been in readmission. 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 She also has a history of lung cancer and did have a right upper and middle lobe lobectomies approximately 20 years ago or more. She also has a history of chronic obstructive pulmonary disease from previous smoking and she follows with Dr. Euceda in our office for the same. She presented here on 03/25/2017 with complaints of fever, shaking and lethargy. She had recently undergone a bladder suspension and developed a urinary tract infection and was treated in the outpatient setting from the emergency room on 03/22/2017 with Augmentin without much improvement. On this admission she did receive fluid resuscitation for hypotension. Last evening she developed increasing shortness of breath cough and congestion. An a team was called and she was given IV diuretics and recovered. She had a similar episode this morning was seen by Dr. Patel and additional IV Lasix was given and the patient was transferred to the intensive care unit and placed on BiPAP. Her ejection fraction from a recent 02/05/2017 cardiac catheterization revealed mildly impaired left ventricular systolic function at 45% with some mild global decrease in contractility. There was no significant obstructive coronary artery disease. Her chest x-ray did reveal worsening bilateral diffuse interstitial airspace disease with increasing pulmonary edema. There is a small right pleural effusion. There was chronic changes noted in the right upper thoracoplasty area. A computed tomography scan of the chest had been done which did reveal evidence of the right upper lobe thoracoplasty changes with underlying volume loss and rib deformities. There was some progressive mediastinal adenopathy the largest node at 1.4 cm along with abdominal lymphadenopathy with 2.2 cm which are both increased from July 2016. Metastatic disease remains in the differential. Oncology is on the case as well. He did have some pancytopenia with a drop in hemoglobin to 6.3 she received 1 unit of packed red blood cells.2 for occult blood was positive. C. difficile was negative. Currently, she is seen in the intensive care unit. She is awake and alert in no acute distress. She is tolerating the BiPAP. She is maintaining O2 saturations in the upper 90s on 60% FiO2. She is currently afebrile. Slightly tachycardic, blood pressure borderline. She is diuresing well from the IV Lasix. She also remains on bronchodilators, Perforomist and Pulmicort inhalations and Singulair. Her urine culture is pending. She is currently on vancomycin and meropenem. The patient is seen again today 03/30/2017 in the intensive care unit. She did go on to develop acute respiratory failure last evening and required intubation and mechanical ventilatory support. She is currently on the ventilator with initial settings of assist control of 14 tidal volume 400, FiO2 90% and a PEEP of 5. This morning blood gases revealed a pO2 of 92, PC O2 of 61 and a pH of 7.12. Vent settings were adjusted to assist control rate of 22 and a tidal volume of 350. She is also requiring to propofol at 30 mcg/kg/m. She is on norepinephrine at 30 mcg/m. She has a 0.9 normal saline 100 MLS per hour. 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 Her white count is 31.5, hemoglobin 10.3, creatinine 1.30. Objective - Vital Signs Vital signs: Vital Signs Temp 98.6 F 03/30/17 08:00 Pulse 130 H 03/30/17 10:00 Resp 21 03/30/17 10:00 BP 86/62 03/30/17 10:00 Pulse Ox 100 03/30/17 10:00 Intake & Output 03/29/17 03/30/17 03/30/17 18:59 06:59 18:59 Intake Total 3036.25 4347.882 493.114 Output Total 2140 485 40 Balance 896.25 3862.882 453.114 Weight 82.7 kg Intake: IV 2930 3060 100 Magnesium Sulfate-D5w Pmx 300 1 gm In Dextrose/Water 1 100ml.bag @ 100 mls/hr IVPB Q1H [facility] Rx#: [id number] Meropenem 1 gm In Sodium 100 100 100 Chloride 0.9% 100 ml @ 200 mls/hr IVPB Q8HR [facility] Rx#:[id number] Potassium Chloride 10 meq 200 Lidocaine 2% Inj 10 mg In Sodium Chloride 0.9% 100 ml @ 100 mls/hr IV Q1HR [facility] Rx#:[id number] Sodium Chloride 0.9% 1, 80 1210 000 ml @ 20 mls/hr IV . Q24H [facility] Rx#:[id number] Sodium Chloride 0.9% 2, 2000 1500 000 ml @ 999 mls/hr IV . Q2H1M [facility] Rx#:[id number] Vancomycin 1,250 mg In 250 250 Sodium Chloride 0.9% 250 ml @ 125 mls/hr IVPB Q12H [facility] Rx#:[id number] Intake, IV Titration 106.25 1287.882 393.114 Amount Norepinephrin 4 mg-0.9% 106.25 1143.75 136.875 Ns Pmx 4 mg In 250 ml @ Titrate IV .Q0M [facility] Rx#: [id number] Propofol 500 mg In Empty 144.132 46.239 Bag 1 bag @ Titrate IV . Q0M [facility] Rx#:[id number] Sodium Chloride 0.9% 1, 10 000 ml @ 10 mls/hr IV . Q24H [facility] Rx#:[id number] Sodium Chloride 0.9% 1, 200 000 ml @ 100 mls/hr IV . Q10H [facility] Rx#:[id number] Output: Urine 2140 485 40 Other: Voiding Method Indwelling Catheter Indwelling Catheter Indwelling Catheter - Exam GENERAL EXAM: Sedated, intubated. HEAD: Normocephalic. EYES: Sluggish reaction of pupils, equal size. NOSE: Clear with pink turbinates. THROAT: Oral endotracheal and gastric tube secured in place. NECK: No masses, no JVD. CHEST: Evidence of post surgical changes on the right chest. LUNGS: Equal air entry with crackles, scattered rhonchi. CVS: S1 and S2 normal with no audible murmurs, regular rhythm. ABDOMEN: No hepatosplenomegaly, normal bowel sounds, no guarding or rigidity. Extremities: There is no significant peripheral edema. No clubbing, no cyanosis. Peripheral pulses are intact. - Labs CBC & Chem 7: 03/30/17 04:58 03/30/17 04:58 Labs: Abnormal Lab Results - Last 24 Hours (Table) 03/29/17 03/30/17 03/30/17 Range/Units 14:33 04:58 04:58 WBC 31.5 H* (3.8-10.6) k/uL RBC 3.76 L (3.80-5.40) m/uL Hgb 10.3 L (11.4-16.0) gm/dL MCHC 29.6 L (31.0-37.0) g/dL Neutrophils # 27.4 H (1.3-7.7) k/uL Monocytes # 1.1 H (0-1.0) k/uL ABG pH 7.30 L (7.35-7.45) ABG pCO2 46 H (35-45) mmHg ABG pO2 122 H (83-108) mmHg ABG HCO3 (21-25) mmol/L ABG O2 Saturation 99.0 H (94-97) % Chloride 112 H (98-107) mmol/L Carbon Dioxide 18 L (22-30) mmol/L Creatinine 1.30 H (0.52-1.04) mg/dL Glucose 136 H (74-99) mg/dL Calcium 7.1 L (8.4-10.2) mg/dL Phosphorus 5.2 H (2.5-4.5) mg/dL 03/30/17 Range/Units 05:04 WBC (3.8-10.6) k/uL RBC (3.80-5.40) m/uL Hgb (11.4-16.0) gm/dL MCHC (31.0-37.0) g/dL Neutrophils # (1.3-7.7) k/uL Monocytes # (0-1.0) k/uL ABG pH 7.12 L* (7.35-7.45) ABG pCO2 61 H (35-45) mmHg ABG pO2 (83-108) mmHg ABG HCO3 19 L (21-25) mmol/L ABG O2 Saturation 93.0 L (94-97) % Chloride (98-107) mmol/L Carbon Dioxide (22-30) mmol/L Creatinine (0.52-1.04) mg/dL Glucose (74-99) mg/dL Calcium (8.4-10.2) mg/dL Phosphorus (2.5-4.5) mg/dL Microbiology - Last 24 Hours (Table) 03/25/17 20:30 Blood Culture - Preliminary Blood No Growth after 96 hours 03/28/17 19:08 Blood Culture - Preliminary Blood No Growth after 24 hours 03/28/17 14:49 Blood Culture - Preliminary Blood No Growth after 24 hours Assessment and Plan Plan: Impression: #1 Acute hypoxic respiratory failure secondary to acute pulmonary edema requiring diuretics and BiPAP support. Subsequently requiring intubation and mechanical ventilatory support on 03/29/2017 p.m. #2 Acute exacerbation of chronic systolic congestive heart failure with estimated ejection fraction 45%. #3 Acute pancytopenia with a hemoglobin of 6.3 requiring 1 unit of transfused used red blood cells. Most recent hemoglobin 8.5. #4 Enlarged mediastinal and upper abdominal lymph nodes with concerns for prostatic disease versus lymphoma. #5 History of non-Hodgkin's lymphoma, diffuse large B-cell initially in 2005 and a recurrence in 2011. PET scan in 2014 was negative as was a CT angiogram of the chest in July 2016. #6 Remote history of lung cancer status post right upper and middle lobe lobectomies greater than 20 years ago. #7 Chronic obstructive pulmonary disease. #8 Remote history of smoking. #9 Recent bladder suspension with suspected acute urinary tract infection. Treated with Augmentin in the outpatient setting. #10 Hypothyroidism. #11 History of DVT. #12 Gastroesophageal reflux disease. Plan: The patient was seen and evaluated by Dr. Burgos. Vent changes were made she is on assist-control 22, tidal volume 350, FiO2 90% and a PEEP of 5. She remains on her pulmonary medications including bronchodilators, Pulmicort and Perforomist inhalations. She is on antibiotics in the form of vancomycin and meropenem per infectious disease. She is on Lovenox for DVT prophylaxis and Protonix for GI prophylaxis. We did have discussions with the son and daughter who are at the bedside. They state their mom would never want any long-term life support. There have been discussions among the family for possible comfort care and will keep us updated on their wishes. The interim, we'll continue to monitor her closely. We'll continue to follow and make recommendations based on her clinical status. Critical care time 38 minutes. Time with Patient: Greater than 30
[2017-03-30] MEDS ORDERED: VANCOMYCIN TROUGH DUE 1 EACH MISC MISCELLANE ONE (11:00)
[2017-03-30 11:01] VITALS: BP 76/49; PULSE 126; RESP 22
[2017-03-30] MEDS: FORMOTEROL FUMARATE 20 MCG/2 ML NEBU INHALATION SCH (11:15)
--- NOTE | 2017-03-30 18:25 | P.DS ---
Providers Date of admission: 03/25/17 23:59 Expected date of discharge: 03/30/17 (Patient ) Attending physician: Fili Swanson Consults: 03/25/17 23:59 Consult Physician Stat Consulting Provider: Edward Lee Consult Reason/Comments: Follow-up on her recent surgery Do you want consulting provider notified?: Yes Consult Physician Stat Consulting Provider: Haley Little Consult Reason/Comments: History of lymphoma Do you want consulting provider notified?: Yes 03/27/17 19:40 Consult Physician Routine Consulting Provider: Vladimir Wong Consult Reason/Comments: fever Do you want consulting provider notified?: Yes 03/28/17 13:32 Consult Physician Stat Consulting Provider: Soledad Segundo Consult Reason/Comments: dizziness, passed out Do you want consulting provider notified?: Yes 03/28/17 18:52 Consult Physician Routine Consulting Provider: Oriana Patel Consult Reason/Comments: h/o lung cancer Do you want consulting provider notified?: Yes Primary care physician: [facility] Course: This was a very pleasant 71-year-old patient of Dr. Rivera. Patient's chronic stable medical condition include GERD, hypothyroid, COPD. On 03/09/17 patient underwent a total hysterectomy with bilateral salpingo-oophorectomy and a urethral sling operation for incontinence by Dr. Moffett and Dr. Deluca. Patient did have a Stein catheter for a week that was then removed. Patient started off with feeling very tired develop a temperature 101 and came to the ER was given Augmentin and sent home. Patient continued to feel unwell then saw Dr. Moffett he put on ciprofloxacin patient continued to feel weak and tired. Patient continued to have fevers not feeling well Dr. Moffett send the patient to get admitted. As patient retaining urine a Stein catheter was placed. Patient has nausea feeling weak and rundown. Patient was septic and initially was on IV Zosyn, and switched over to IV meropenem and vancomycin. Patient pulmonary status compromised felt to be a combination of possible pneumonia versus fluid overload. Patient had to be intubated. Patient continued not to do well. Patient's son and daughter discussed with Dr. Burgos and patient was made a terminal wean and extubate it accordingly. Patient earlier today. Final diagnosis: Cause of : Possible pneumonia consider gram-negative organism causing sepsis Other medical conditions: -Acute UTI causing severe sepsis present on admission with lactic acidosis having failed outpatient treatment -GERD -Hypothyroidism -COPD in an ex-smoker -History of right upper and middle lobe lobectomy 20 years ago for lung cancer -History of non-Hodgkin lymphoma treated with stem cell transplant -Hypoalbuminemia as an acute phase reactant -Thrombocytopenia from sepsis -Hyper natremia likely hypoosmolar from decreased salt intake -Acute hypoxic respiratory failure on ventilator support from underlying pneumonia/COPD exacerbation -Acute congestive heart failure exacerbation from systolic dysfunction with ejection fraction 25% blasts in could be from cardiac stunning from sepsis Plan - Discharge Summary New Discharge Prescriptions: No Action Montelukast [Singulair] 10 mg PO HS Levothyroxine Sodium [Synthroid] 100 mcg PO DAILY Carvedilol [Coreg] 6.25 mg PO QAM Losartan [Cozaar] 25 mg PO HS Esomeprazole Magnesium [NexIUM] 40 mg PO DAILY Carvedilol [Coreg] 3.125 mg PO HS Budesonide [Pulmicort] 1 mg INHALATION RT-BID Baclofen [Lioresal] 20 mg PO HS Arformoterol Tartrate [Brovana] 15 mcg INHALATION RT-BID Calcium Carbonate [Calcium] 600 mg PO BID Aspirin [Adult Low Dose Aspirin EC] 81 mg PO DAILY Furosemide [Lasix] 20 mg PO DAILY Diclofenac Sodium [Voltaren] 50 mg PO BID Acetaminophen-Codeine 300-30mg [Tylenol w/codeine #3] 1 tab PO Q4HR PRN PRN Reason: Moderate Pain Ciprofloxacin HCl [Cipro] 500 mg PO Q12HR Discharge Medication List Carvedilol [Coreg] 6.25 mg PO QAM 01/06/15 [History] Levothyroxine Sodium [Synthroid] 100 mcg PO DAILY 01/06/15 [History] Montelukast [Singulair] 10 mg PO HS 01/06/15 [History] Arformoterol Tartrate [Brovana] 15 mcg INHALATION RT-BID 08/13/16 [History] Baclofen [Lioresal] 20 mg PO HS 08/13/16 [History] Budesonide [Pulmicort] 1 mg INHALATION RT-BID 08/13/16 [History] Calcium Carbonate [Calcium] 600 mg PO BID 08/13/16 [History] Carvedilol [Coreg] 3.125 mg PO HS 08/13/16 [History] Esomeprazole Magnesium [NexIUM] 40 mg PO DAILY 08/13/16 [History] Losartan [Cozaar] 25 mg PO HS 08/13/16 [History] Aspirin [Adult Low Dose Aspirin EC] 81 mg PO DAILY 02/04/17 [History] Diclofenac Sodium [Voltaren] 50 mg PO BID 03/04/17 [History] Furosemide [Lasix] 20 mg PO DAILY 03/04/17 [History] Acetaminophen-Codeine 300-30mg [Tylenol w/codeine #3] 1 tab PO Q4HR PRN [History] Ciprofloxacin HCl [Cipro] 500 mg PO Q12HR 03/25/17 [History] Discharge Disposition: - Preliminary Cause of Preliminary Cause of : Pneumonia
== END 2017-03-30 13:29 | disposition expired | DRG 871 ==
LOC: EC 19:29 → 5ONC 23:59 → 6ICU 03-29 08:33
PROVIDERS: ADMIT Hospitalist; ATTEND Hospitalist
PROC: 5A1945Z Respiratory Ventilation, 24-96 Consecutive Hours (ICD-10-PCS; principal; 2017-03-29)
PROC: 0BH18EZ Insertion of Endotracheal Airway into Trachea, Via Natural or Artificial Opening Endoscopic (ICD-10-PCS; principal; 2017-03-29)
DX: A41.9 Sepsis, unspecified organism (principal); I50.23 Acute on chronic systolic (congestive) heart failure; J96.01 Acute respiratory failure with hypoxia; J18.9 Pneumonia, unspecified organism; D61.818 Other pancytopenia; E87.2 Acidosis; J44.0 Chronic obstructive pulmonary disease with (acute) lower respiratory infection; D80.1 Nonfamilial hypogammaglobulinemia; C85.90 Non-Hodgkin lymphoma, unspecified, unspecified site; Z94.81 Bone marrow transplant status; E87.1 Hypo-osmolality and hyponatremia; J44.1 Chronic obstructive pulmonary disease with (acute) exacerbation; N39.0 Urinary tract infection, site not specified; D69.59 Other secondary thrombocytopenia; E03.9 Hypothyroidism, unspecified; E88.09 Other disorders of plasma-protein metabolism, not elsewhere classified; K21.9 Gastro-esophageal reflux disease without esophagitis; N39.46 Mixed incontinence; R65.20 Severe sepsis without septic shock; Z79.82 Long term (current) use of aspirin; Z79.899 Other long term (current) drug therapy; Z80.8 Family history of malignant neoplasm of other organs or systems; Z82.49 Family history of ischemic heart disease and other diseases of the circulatory system; Z85.118 Personal history of other malignant neoplasm of bronchus and lung; Z86.718 Personal history of other venous thrombosis and embolism; Z87.891 Personal history of nicotine dependence; Z88.2 Allergy status to sulfonamides; Z88.1 Allergy status to other antibiotic agents
CPT/HCPCS: 36415; 36600; 70450; 71010; 71020; 71260; 74177; 80048; 80053; 81001; 82272; 82533; 82805; 83605; 83735; 83880; 84100; 85025; 85027; 86850; 86900; 86901; 86920; 87040; 87086; 87324; 93005; 93306; 94002; 94003; 94640; 94660; 94760; 94770